=== PATIENT | female | born 1960 | race Caucasian/White ===

== ENCOUNTER 2016-05-04 06:25 | Observation (INO) | payer MEDICARE ==
[~2016-05-04] VITALS: Ht 180.3 cm; Wt 74.0 kg
[2016-05-04] VITALS (7 sets, daily range): BP systolic 88–132; BP diastolic 60–79; PULSE 69–83; RESP 11–19; O2SAT 93–99
[~2016-05-04 06:25] MED LIST: AMLO-39 PO; ASCO100089 PO; ASPI-973 PO; BUPR150T8 PO; CALC-68 PO; CLOB15CR3 TOP; CYCL10TA9 PO; DULO60CA42 PO; ETAN50PE SQ; FAMO40TA72 PO; FLAX340P PO; FOLI1TAB18 PO; FURO40TA4 PO; GABA-502 PO; HYDR200T5 PO; IBUP200C PO; KLO5T PO; LEVO75TA4 PO; MELO-259 PO; METH1VIA2 IJ; METH5TAB3 PO; MULT-666 PO; OMEG1CAP25 PO; PENT400T PO; POTA10TA12 PO; POTA8TAB3 PO; PRAZ1CAP PO; trental
--- NOTE | 2016-05-04 06:34 | ED.REPORT ---
HPI-Abd Pain F 40 and Over Date of Service May 04, 2016 ED Provider: Dr. Checo Mueller 55 year old female on methadone with a hx of multiple small bowel obstructions presents to the ED complaining of severe diffuse abdominal pain onset yesterday. She is moaning and in distress upon entering the room. Pt has inability to pas gas and denies vomiting .She describes the pain as similar to her previous bowel obstructions. Pt was admitted 4 times in September-October 2013 for small bowel obstructions. Nursing Notes Stated Complaint: ABDOMINAL PAIN Chief Complaint: Female Abdominal Pain Nursing Notes Reviewed: Yes Allergies: Coded Allergies: prednisone (Verified Allergy, Unknown, MOOD SWINGS, 05/04/16) pregabalin (Verified Allergy, Unknown, 05/04/16) Scheduled Amlodipine (Norvasc) 5 Mg Tablet 5 MG PO AM Ascorbic Acid (Vitamin C) 1,000 Mg Tab.chew 1,000 MG PO DAILY Aspirin (Aspirin) 81 Mg Tablet. 81 MG PO AM Bupropion ER (Wellbutrin SR) 150 Mg Tablet.er 150 MG PO BID Calcium Citrate/Vitamin D2 (Calcium with Vit D Tablet) 1 Each Tablet 1 EACH PO DAILY Clobetasol Propionate/Emoll (Clobetasol Emollient 0.05% Crm) 15 Gm Cream..g. 1 APPL TOP BID Duloxetine (Cymbalta) 60 Mg Capsule. 60 MG PO PM Etanercept (Enbrel) 50 Mg/1 Ml Pen.injctr 50 MG SQ q wednesday 0.98 ml weekly on Sundays Famotidine (Pepcid) 40 Mg Tablet 40 MG PO DAILY Flaxseed (Flaxseed) 340 Gm Powder 1 TSP PO DAILY Folic Acid (Folic Acid) 1 Mg Tablet 1 MG PO PM Furosemide (Furosemide) 40 Mg Tablet 40 MG PO AM Gabapentin (Gabapentin) 300 Mg Capsule 600 MG PO BID Hydroxychloroquine Sulfate (Hydroxychloroquine Sulfate) 200 Mg Tablet 400 MG PO PM Levothyroxine (Levothyroxine) 75 Mcg Tablet 75 MCG PO AM Meloxicam (Meloxicam) 7.5 Mg Tablet 1 TAB PO AM take 1-2 tabs Methadone (Methadone) 5 Mg Tablet 15 MG PO BID Methotrexate Sodium/Pf (Methotrexate 1 gm Vial) 1 Gm Vial 1 GM IJ WEEKLY Multivitamin (Once Daily) 1 Each Tablet 1 EACH PO DAILY [place]-3 Fatty Acids/Fish Oil ([place] 3 Fish Oil Softgel) 1 Each Capsule.dr 1 EACH PO DAILY 1200mg po caps Pentoxifylline (Pentoxifylline) 400 Mg Tablet.er 400 MG PO AM Potassium Chloride ER (Potassium Chloride ER) 10 Meq Tablet.er 10 MEQ PO AM TAKE WITH FOOD Potassium Chloride ER (Klor-Con 8) 8 Meq Tablet 8 MEQ PO BID Prazosin (Minipress) 1 Mg Capsule 1 MG PO BID Scheduled PRN Ibuprofen (Ibuprofen) 200 Mg Capsule 200 MG PO q6hrs PRN PRN For Pain General Time Seen by MD: 06:33 Chief Complaint Abdominal pain Hx Obtained From: Patient Arrived By: Walk-in Sudden in Onset?: Yes Onset Occurred: 1 day ago Symptom Duration: Since onset Location: : Diffuse Severity: Current: Severe Past Medical History Past Medical History Multiple Small Bowel Obstructions Rheumatoid arthritis Raynaud's Scleroderma Hypothyroid GERD Reports: Thyroid disease Past Surgical History Bowel resection for obstruction secondary to adhesions laparoscopically assisted subtotal colectomy with anastomosis between cecum and distal sigmoid colon. Smoking History Never Smoker Social History Alcohol Use: Denies alcohol use Drug Use: Denies drug use Ambulatory Status Independent Review of Systems GI: Reports: Abdominal pain (diffuse), Denies: Vomiting Complete sys rev & neg: except as marked. Physical Exam Vital Signs Vital Signs (First) Date Time Temp Pulse Resp B/P Pulse Ox O2 Delivery O2 Flow Rate FiO2 05/04/16 06:29 36.1 79 18 119/79 99 Room Air Initial VS: Reviewed Head / Eyes: Atraumatic, Normocephalic, PERRL ENT: Mucous membranes moist, Conjunctiva normal, No scleral icterus Neck: Supple, Non-tender, Full range of motion Extremities: Vascular intact, Neuro intact, No swelling, No tenderness General/Constitutional: Awake, Alert Distress / Hydration: Positive: Distress moderate Respiratory / Chest: Atraumatic, Breath sounds NL, Breath sounds = bilat, No respiratory distress, No rales, No rhonchi, No wheezing, No retractions Cardiovascular: Heart rate NL, Regular rhythm, Heart sounds NL, No gallop, No murmurs, No rubs Tenderness/Guarding/Rebound: Positive: Tender diffuse Back: Atraumatic, Inspection NL, Full range of motion Interpretation & Diagnostics Lab Results Interpretation Result Diagram: 05/04/16 0720 05/04/16 0720 Test 05/04/16 07:20 White Blood Count 16.0th/mm3 (3.8-10.1) Red Blood Count 5.35mil/mm3 (3.90-5.20) Hemoglobin 15.5g/dL (12.0-15.6) Hematocrit 48.3% (35.0-46.0) Mean Corpuscular Volume 90.3fL (81-100) Mean Corpuscular Hemoglobin 29.0pg (27.0-35.0) Mean Corpuscular Hemoglobin Concent 32.1% (32.0-37.0) Red Cell Distribution Width 14.9% (12.3-15.4) Platelet Count 258bil/L (150-400) Neutrophils (%) (Auto) 77.3% (40-74) Lymphocytes (%) (Auto) 11.3% (14-46) Monocytes (%) (Auto) 8.2% (4-12) Eosinophils (%) (Auto) 1.9% (0-5) Basophils (%) (Auto) 0.4% (0-3) Sodium Level 141mEq/L (134-144) Potassium Level 4.1mEq/L (3.5-5.2) Chloride Level 98mEq/L (97-108) Carbon Dioxide Level 26mmol/L (18-29) Blood Urea Nitrogen 24mg/dL (6-24) Creatinine 1.06mg/dL (0.57-1.00) Estimat Glomerular Filtration Rate 77mL/min (>59) Glucose Level 143mg/dL (60-99) Lactic Acid Level 2.8mmol/L (0.4-2.0) Calcium Level 10.0mg/dL (8.5-10.1) Magnesium Level 2.4mg/dL (1.6-2.6) Total Bilirubin 0.2mg/dL (0.0-1.2) Aspartate Amino Transf (AST/SGOT) 25U/L (0-50) Alanine Aminotransferase (ALT/SGPT) 21U/L (0-32) Alkaline Phosphatase 85U/L (25-150) Total Protein 8.0g/dL (6.4-8.4) Albumin 4.6g/dL (3.4-5.0) Lipase 1893U/L (13-60) X-Ray Chest Interpretation Chest Xray Interpretation: IMPRESSION: No acute process seen within the chest. Dictated by: Alon Xiao [facility] Interpreted: Charu Gallegos MD on 05/04/2016 at 9:01 Transcribed by: CORONA on 05/04/2016 at 9:01 View: Portable Interpretation / Wet Read by: Interpret - Radiologist CT Abd / Pelvis Interpretation IMPRESSION: 1. Distended loops of small bowel with a transition point in the left hemipelvis consistent with a high-grade small bowel obstruction. Small amount of associated free fluid is noted. No free air. Findings discussed with Dr. Catherine on 05/04/16 at 10:20 AM. 2. Biliary and pancreatic duct dilatation are nonspecific and may be associated with bowel obstruction. Dictated by: Edy Lilly M.D. on 05/04/2016 at 10:15 Approved by: Edy Lilly M.D. on 05/04/2016 at 10:25 Study type: Abdominal CT no contrast Interpretation / Wet Read by: Interpret - Radiologist Re-Eval/Medical Decision Med Decision/Clinical Course Bowel obstruction with associated pancreatitis. Will be admitted. I do not suspect acute infection rather think that the lactic acidosis and leukocytosis are likely related to pancreatitis. Re-Evaluation/Progress : Time of Eval: 10:30 Patient Status: Condition unchanged Re-Evaluation/Progress Note: Pt rechecked and is still in pain after 6mg dilodid. CT shows a bowel obstruction but no inflammation around pancreas. Informed pt of need for NG tube and admission. Consultation : Referral / Consult Name: Ash Velásquez DO Consulted With: Hospitalist Call Returned at: 10:32 Credit Front Office Developer: Agrees with eval, Agrees with plan, Accepts admit Note: Case discussed. Dr. Velásquez accepts admit. Counseled Regarding: Diagnosis, Lab results, Need for admission Discharge & Departure Primary Impression: Bowel obstruction Intestinal obstruction type: unspecified Qualified Code: K56.60 - Unspecified intestinal obstruction Disposition: ADMITTED TO HOSPITAL Discharge Condition All VS Reviewed: Yes Condition: Stable Referrals: Andria Garcia MD (PCP) Scribe Attestation Portion of this note were transcribed by Ivana Bello. I, Dr. Mueller, personally performed the history, physical exam, and medical decision-making: I reviewed and confirmed the accuracy for the information in the transcribed note. Signed by: margareth King, 05/04/16 1200 copies to: Andria Garcia MD, Timothy S DO May 04, 2016 06:34 IVANA BELLO May 04, 2016 06:47
[2016-05-04] MEDS ORDERED: 0.9% Sodium Chloride 1,000 ML IV ONE (06:41)
[2016-05-04] MEDS ORDERED: Ondansetron 2 mg/mL 2 mL Inj IVPUSH PRN ×3 (06:45→18:45)
[2016-05-04] MEDS: HYDROmorphone 0.5 mg/0.5 mL iSecure Syringe IVPUSH PRN ×4 (07:26→08:18)
[2016-05-04 07:29] LABS: BASOPHILS % (AUTO) 0.4 % (0-3); EOSINOPHILS % (AUTO) 1.9 % (0-5); MONOCYTES % (AUTO) 8.2 % (4-12); Mean Corpuscular Volume 90.3 fL (81-100); NEUTROPHILS % (AUTO) 77.3 % (40-74); Platelet Count 258 bil/L (150-400)
[2016-05-04 08:08] LABS: Magnesium 2.4 mg/dL (1.6-2.6)
[2016-05-04] MEDS ORDERED: HYDROmorphone 1 mg/mL Inj IVPUSH PRN ×2 (08:10→09:15)
--- NOTE | 2016-05-04 09:02 | DRSVH ---
PROCEDURE: X-RAY CHEST ONE VIEW, PORTABLE ([id number]) INDICATIONS: abd pain, sepsis TECHNIQUE: One view of the chest was acquired. COMPARISON: Located Within [facility], CR, XR CHEST 1VW (PORTABLE), 05/11/2015, 14:08. FINDINGS: Surgical changes and devices: None. Lungs and pleura: No pleural effusions or pneumothorax. Lungs are clear. Mediastinum: Mediastinal contours appear normal. Heart size is normal. Bones and chest wall: No suspicious bony lesions. Overlying soft tissues appear unremarkable. IMPRESSION: No acute process seen within the chest. Dictated by: Alon Xiao [facility] Interpreted: Charu Gallegos MD on 05/04/2016 at 9:01 Transcribed by: CORONA on 05/04/2016 at 9:01 Approved by: Charu Gallegos M.D. on 05/04/2016 at 16:29
--- NOTE | 2016-05-04 10:27 | DRSVH ---
PROCEDURE: CT ABDOMEN AND PELVIS WITH CONTRAST ([id number]) INDICATIONS: Abdominal pain, recent fundoplication. TECHNIQUE: After the administration of oral and intravenous contrast, 5 mm thick sections acquired from the diap hragms to the symphysis. 5 mm thick coronal and sagittal reformats were performed. For radiation do se reduction, the following was used: automated exposure control, adjustment of mA and/or kV accordi ng to patient size. COMPARISON: [facility], CT, CT ABD PELVIS W CON, 05/11/2015, 17:29. FINDINGS: Image quality: There is streak artifact associated with surgical clips in the left hemipelvis. ABDOMEN: Lung bases: Lung bases are clear. Heart size is normal. Solid organs: Liver and spleen are normal in size and enhancement. Gallbladder is distended without calcified gallstones or wall thickening. There is increased biliary and pancreatic duct dilatation, with the common bile duct measuring up to 8 mm and the hepatic duct measuring up to 6 mm. Noncalcif ied common duct stones identified. No adrenal nodules. Kidneys are normal in size and enhancement, without hydronephrosis. Peritoneum and bowel: There are postsurgical changes at the gastroesophageal junction consistent wit h history of fundoplication. Mild associated wall thickening may reflect residual post surgical tami a. There is marked distention of the stomach and small bowel loops which measure up to 5.1 cm. Mult iple associated air-fluid levels are demonstrated. There is a transition point in the left hemipelvi s on series 2 image 67 and coronal image 25 of series 4 with associated small bowel feces sign. More distal loops of small bowel are nondistended. There are postsurgical changes compatible with partia l colectomy. A small amount of free fluid is demonstrated in the abdomen and pelvis. No free air. Nodes and vessels: No retroperitoneal or mesenteric adenopathy. Aorta and inferior vena cava are no rmal in caliber. Miscellaneous: No ventral hernias. PELVIS: Genitourinary: Bladder wall thickness is normal. Miscellaneous: No inguinal hernias or adenopathy. Bones: No suspicious bony lesions. No vertebral body compression fractures. IMPRESSION: 1. Distended loops of small bowel with a transition point in the left hemipelvis consistent with a h igh-grade small bowel obstruction. Small amount of associated free fluid is noted. No free air. Fi ndings discussed with Dr. Catherine on 05/04/16 at 10:20 AM. 2. Biliary and pancreatic duct dilatation are nonspecific and may be associated with bowel obstructi on. Dictated by: Edy Lilly M.D. on 05/04/2016 at 10:15 Approved by: Edy Lilly M.D. on 05/04/2016 at 10:25
[2016-05-04] MEDS ORDERED: MetoCLOpramide 5 mg/mL 2 mL Inj IVPUSH ONE (10:45)
[2016-05-04] MEDS ORDERED: 0.9% Sodium Chloride 1,000 ML IV SCH (11:42)
[2016-05-04] MEDS ORDERED: Alum-Mag Hydrox-Simeth 30 mL Suspension PO PRN ×2 (11:45→18:45)
--- NOTE | 2016-05-04 12:40 | NUR ---
ADMIT TO [facility] Patient arrived to room 1017 [facility]. Was able to stand and transfer to hospital bed without any assistance. Gait steady. Left NGT in place. Hooked up to med cont. suction with brown/green sediment output. Rates abdominal pain 4/10 which is tolerable for her. IV fluids running through left AC. Patient advised of NPO status. Oriented to room. Continue to monitor.
--- NOTE | 2016-05-04 15:32 | PCM.CONSUR ---
Subjective Date of Service: May 04, 2016 History of Present Illness Kallie Veloz is a 55 year old woman with a PMH of scleroderma, Toupe fundoplication in 2008 subsequently revised 02/2016, Multiple SBOs most recently in 10/2015 requiring 3 prior adhesion lysis procedures in 2013 who presents with a 1 day history of nausea and abdominal which she recognized as consistent with her prior SBOs. CT imaging in the ED revealed high grade SBO with a transition point in the left hemipelvis concurrent with biliary and pancreatic duct dilatation with associated elevated Lipase. At the time of evaluation the patient reports that the NG tube decompression initiated in the ED has greatly improved her abdominal distension and discomfort, and she states that in the past with her prior SBOs she has removed the NG tube the same day it was placed following improvement of her symptoms with subsequent uncomplicated resolution. . Allergy Allergies: Coded Allergies: prednisone (Verified Allergy, Unknown, MOOD SWINGS, 05/04/16) pregabalin (Verified Allergy, Unknown, 05/04/16) Medications Hypertension Medication: Yes (Home amlodipine) Home Meds Incl Beta Blockers: No Amlodipine (Norvasc) 5 Mg Tablet 5 MG PO AM (Reported) Last Taken: Unknown Dose on 05/03/16 0800 Ascorbic Acid (Vitamin C) 1,000 Mg Tab.chew 1,000 MG PO DAILY (Reported) Last Taken: Unknown Dose on 05/03/16 0800 Aspirin (Aspirin) 81 Mg Tablet.dr 81 MG PO AM (Reported) Last Taken: Unknown Dose on 05/03/16 0800 Bupropion ER (Wellbutrin SR) 150 Mg Tablet.er 150 MG PO BID (Reported) Last Taken: Unknown Dose on 05/03/16 0800 Calcium Citrate/Vitamin D2 ( Calcium with Vit D Tablet) 1 Each Tablet 1 EACH PO DAILY (Reported) Last Taken: Unknown Dose on 05/03/16 0800 Clobetasol Propionate/Emoll ( Clobetasol Emollient 0.05% Crm) 15 Gm Cream..g. 1 APPL TOP BID (Reported) Last Taken: Unknown Dose on 05/03/16 0800 Duloxetine (Cymbalta) 60 Mg Capsule.dr 60 MG PO PM (Reported) Last Taken: Unknown Dose on 05/03/16 0800 Etanercept (Enbrel) 50 Mg/1 Ml Pen.injctr 50 MG SQ q wednesday (Reported) 0.98 ml weekly on Sundays Last Taken: Unknown Dose on 04/26/16 08 Famotidine (Pepcid) 40 Mg Tablet 40 MG PO DAILY Prescribed by: CHACHA LOPEZ DO Last Taken: Unknown Dose on 05/03/16799 Flaxseed (Flaxseed) 340 Gm Powder 1 TSP PO DAILY (Reported) Last Taken: Unknown Dose on 05/03/16799 Folic Acid (Folic Acid) 1 Mg Tablet 1 MG PO PM (Reported) Last Taken: Unknown Dose on 05/03/16799 Furosemide (Furosemide) 40 Mg Tablet 40 MG PO AM (Reported) Last Taken: Unknown Dose on 05/03/16799 Gabapentin (Gabapentin) 300 Mg Capsule 600 MG PO BID (Reported) Last Taken: Unknown Dose on 05/03/161999 Hydroxychloroquine Sulfate ( Hydroxychloroquine Sulfate) 200 Mg Tablet 400 MG PO PM (Reported) Last Taken: Unknown Dose on 05/03/16799 Ibuprofen (Ibuprofen) 200 Mg Capsule 200 MG PO q6hrs PRN PRN For Pain (Reported) Last Taken: Unknown Dose on 05/03/16799 Levothyroxine (Levothyroxine) 75 Mcg Tablet 75 MCG PO AM (Reported) Last Taken: Unknown Dose on 05/03/16799 Meloxicam (Meloxicam) 7.5 Mg Tablet 1 TAB PO AM (Reported) take 1-2 tabs Last Taken: Unknown Dose on 05/03/16799 Methadone (Methadone) 5 Mg Tablet 15 MG PO BID (Reported) Last Taken: Unknown Dose on 05/03/161999 Methotrexate Sodium/Pf ( Methotrexate 1 gm Vial) 1 Gm Vial 1 GM IJ WEEKLY (Reported) Last Taken: Unknown Dose on 05/03/16799 Multivitamin (Once Daily) 1 Each Tablet 1 EACH PO DAILY (Reported) Last Taken: Unknown Dose on 05/03/16799 [place]-3 Fatty Acids/Fish Oil ( [place] 3 Fish Oil Softgel) 1 Each Capsule.dr 1 EACH PO DAILY (Reported) 1200mg po caps Last Taken: Unknown Dose on 05/03/16 08 Pentoxifylline (Pentoxifylline) 400 Mg Tablet.er 400 MG PO AM (Reported) Last Taken: Unknown Dose on 05/03/16799 Potassium Chloride ER (Potassium Chloride ER) 10 Meq Tablet.er 10 MEQ PO AM (Reported) TAKE WITH FOOD Last Taken: Unknown Dose on 05/03/16 0800 Potassium Chloride ER (Klor-Con 8) 8 Meq Tablet 8 MEQ PO BID (Reported) Last Taken: Unknown Dose on 05/03/161999 Prazosin (Minipress) 1 Mg Capsule 1 MG PO BID (Reported) Last Taken: Unknown Dose on 05/03/161999 Discontinued Medications ([trental]) (Reported) Clonazepam (Clonazepam) 0.5 Mg Tab 0.5 MG PO PM (Reported) Last Taken: Unknown Dose on Unknown Date & Time Cyclobenzaprine ( Cyclobenzaprine) 10 Mg Tablet 10 MG PO HS (Reported) Last Taken: Unknown Dose on Unknown Date & Time Past Surgical History Surgeries: Yes (wrist, toupet fundoplication, sinus, toes, SUBTOTAL COLECTOMY, lysis of adhesions x3 in 2013) Patient/Family Past Surgical: Positive for:: Accept Blood Products?, Denies:: Anesthesia Reactions, Blood Transfuse Reaction, Blood Transfusions, Malignant Hyperthermia Social History Hx Alcohol Use: No Hx Substance Use: No Hx Tobacco Use: No PMH HEENT History History of ENT Problems?: Yes HEENT History: Positive for:: Sinus Problem (hx of sinus surg/ resolved AMBERLY ) Denies:: Abnormal Airway Cataracts Difficult Intubation Dysphagia Hearing Problem Cardiovascular History History of Heart Problems?: Yes Cardiovascular History: Positive for:: Chest Pain (pulmonary ) Denies:: Cardiac Surgery Congestive Heart Failure Edema Heart Murmur Hypertension Irregular Heartbeat Pacemaker Thrombophlebitis Respiratory History of Respiratory Problem: Yes Respiratory History: Positive for:: Use of C-PAP Machine (amberly pos) Denies:: Asthma COPD Chest Surgery Dyspnea Emphysema Hemoptysis Oxygen Administration Pneumonia Tuberculosis Neurological History Hx Neurologic Problems?: Yes Neurological History: Denies:: Alzheimer's Disease CVA Dementia Dizziness Headaches Multiple Sclerosis Parkinson's Disease Seizures Gastrointestinal History HX of GI Problems?: Yes Gastrointestinal History: Positive for:: Gastroesphageal Reflux Heartburn Denies:: Cirrhosis Diverticulitis Gastrointestinal Bleeding Hepatitis Hiatal Hernia Rectal Bleeding Other GI Pertinent History: sectio of colon removed 2013 Genitourinary History Hx of Gu Problems?: No Genitourinary History: Denies: HX of Hemodialysis Kidney Stones Urinary Tract Infection Female/Male History Reproductive History Female: Denies: Currently ? Endometriosis Pelvic Inflammatory DX Problems with Breasts? Skin History Skin History: Positive for:: History Skin Disorders? (scleraderma) Musculoskeletal History Hx Musculoskeletal Problems?: Yes Musculoskeletal History: Positive for:: Musculoskeletal Trauma (wrist and toe surg) Denies:: Back Injury Joint Replacement Psycho Social History Hx of Psycho/Social Problems?: Yes Psycho Social History: Positive for:: Hx Depression Denies:: Anxiety Bipolar Disorder Suicide Attempt Other History Hx Any Other Health Problems?: Yes Other History: Positive for:: Hospitalization Thyroid Disease (hypo) Denies:: Cancer Endocrine Disease Diabetes: No Social History Hx Alcohol Use: NoHx Substance Use: NoHx Tobacco Use: No Smoking Status: Never Smoker Objective Exam Vital Signs & I/O Vital Sign- Last 8 Hours Date Time Temp Pulse Resp B/P Pulse Ox O2 Delivery O2 Flow Rate FiO2 05/04/16 12:08 36.9 69 18 112/68 97 Room Air 05/04/16 11:11 81 11 99/60 96 Room Air 05/04/16 11:00 83 17 132/64 97 Room Air 05/04/16 10:30 77 17 88/64 93 Room Air 05/04/16 10:00 75 19 114/74 97 Room Air 05/04/16 09:30 72 14 114/64 96 Room Air 05/04/16 06:29 36.1 79 18 119/79 99 Room Air Lab & Micro Results Laboratory Tests Test 05/04/16 07:20 White Blood Count 16.0th/mm3 (3.8-10.1) Red Blood Count 5.35mil/mm3 (3.90-5.20) Hemoglobin 15.5g/dL (12.0-15.6) Hematocrit 48.3% (35.0-46.0) Mean Corpuscular Volume 90.3fL (81-100) Mean Corpuscular Hemoglobin 29.0pg (27.0-35.0) Mean Corpuscular Hemoglobin Concent 32.1% (32.0-37.0) Red Cell Distribution Width 14.9% (12.3-15.4) Platelet Count 258bil/L (150-400) Neutrophils (%) (Auto) 77.3% (40-74) Lymphocytes (%) (Auto) 11.3% (14-46) Monocytes (%) (Auto) 8.2% (4-12) Eosinophils (%) (Auto) 1.9% (0-5) Basophils (%) (Auto) 0.4% (0-3) Sodium Level 141mEq/L (134-144) Potassium Level 4.1mEq/L (3.5-5.2) Chloride Level 98mEq/L (97-108) Carbon Dioxide Level 26mmol/L (18-29) Blood Urea Nitrogen 24mg/dL (6-24) Creatinine 1.06mg/dL (0.57-1.00) Estimat Glomerular Filtration Rate 77mL/min (>59) Glucose Level 143mg/dL (60-99) Lactic Acid Level 2.8mmol/L (0.4-2.0) Calcium Level 10.0mg/dL (8.5-10.1) Magnesium Level 2.4mg/dL (1.6-2.6) Total Bilirubin 0.2mg/dL (0.0-1.2) Aspartate Amino Transf (AST/SGOT) 25U/L (0-50) Alanine Aminotransferase (ALT/SGPT) 21U/L (0-32) Alkaline Phosphatase 85U/L (25-150) Total Protein 8.0g/dL (6.4-8.4) Albumin 4.6g/dL (3.4-5.0) Lipase 1893U/L (13-60) Result Diagram: 05/04/1671905/04/16719 Review of Systems: Constitutional: Negative, except as otherwise mentioned in the history above. Ophthalmologic: Negative, except as otherwise mentioned in the history above. Cardiovascular: Negative, except as otherwise mentioned in the history above. Respiratory: Negative, except as otherwise mentioned in the history above. Gastrointestinal: Negative, except as otherwise mentioned in the history above. Genitourinary: Negative, except as otherwise mentioned in the history above. Musculoskeletal: Negative, except as otherwise mentioned in the history above. Neurological: Negative, except as otherwise mentioned in the history above. Psychiatric: Negative, except as otherwise mentioned in the history above. Hematologic/Lymphatic: Negative, except as otherwise mentioned in the history above. Allergic/Immunologic: Negative, except as otherwise mentioned in the history above. H&P Surgical Exam Exam General: Alert, Oriented X3, Cooperative, Mild Distress HEENT: Within normal limits & unremarkable, PERRLA, EOMI, Mucous membranes moist and pink Neck: Within normal limits & unremarkable Respiratory: Clear to Auscultation Cardiac: Exam Unremarkable, Regular Rate/Rhythm, No Murmurs/Rubs/Gallops Abdomen: No masses, Other (diminished bowel sounds, mild diffuse tenderness to palpation) Breasts: Not Indicated Pelvic: Not Indicated Assessment & Plan Assessment Patient is a 55 year old woman with a PMH of scleroderma, Hemicolectomy with residual sigmoid and rectum, multiple SBOs most recently in 10/28 requiring lysis of adhesion x3 in 2013, and Toupe fundoplication originally in 2008 at [facility] with subsequent revision in 02/27 at who presents with another high grade SBO with transitional zone in the left Hemipelvis. She is quite familiar with the expected course of this condition and states that she already feels great improvement form NG suctioning, she states that in the past with prior SBOs she has had the NG tube removed early in the course of recovery essentially once her distension and nausea subsided and she would like to pursue this strategy again. We see no contraindication to acquiescing to her wishes as she is intimately familiar with her usual course of SBO and recognizes and accepts the risk for re-insertion of the NG tube should her SBO fail to resolve. Thus we will plan to likely pull the NG tube this evening and continue to observe Mrs. Veloz and assess for passage of stool or flatus. At this point we will not initiate a gastrographin challenge test and this has not been required in the past for resolution of her SBOs. Pain Evaluation: Adequate Pain Control VTE Mechanical Devices: Intermittant Pneumatic CD Plan: -Plan to pull NG tube this evening if symptoms have improved significantly -Continue NPO -Observe for passage of stool or flatus -Follow up imaging as indicated -Pain and nausea control with Dilaudid and Zofran PRN -We will continue to follow this patient and will be available should her condition change. Resuscitation Status: CPR: Attempt Resuscitation Attending Statement: I personally interviewed and examined the pt, and I agree with Dr. Velásquez's assessment and plan. Ash Velásquez DO May 04, 2016 14:22 Hudson Lee MD May 07, 2016 09:19
--- NOTE | 2016-05-04 17:31 | NUR ---
GI Had received orders to remove NGT this evening, but patient had already done so on her own when this nurse entered the room. The NGT suction was still on. Has had 2 small BM's since NGT had been placed this morning. Patient reports passing flatus. Notified general surgery and he gave orders to advance diet as tolerated. Gave patient clear liquids. Tolerating well at this point.
[2016-05-04] MEDS ORDERED: Polyethylene Glycol (PEG) 17 Gm Powder PO PRN (18:45)
--- NOTE | 2016-05-04 18:52 | PCM.HPMED ---
Subjective Date of Service May 04, 2016 Primary Provider: Admitting Physician: Anil Wright Primary Care Physician: Andria Garcia MD Attending Physician: Anil Wright Chief Complaint: abdominal pain History of Present Illness: 55 year old female with past history notable for scleroderma, Fundoplication in 2008 subsequently revised 02/2016, Multiple SBOs most recently in 10/2015 requiring 3 prior adhesion lysis procedures presents with acute onset of abdominal pain and nausea since last night. This was also associated with low back pain that has resolved since presentation to the ED. In ED NG tube was placed and surgery consulted. Allergies Coded Allergies: prednisone (Verified Allergy, Unknown, MOOD SWINGS, 05/04/16) pregabalin (Verified Allergy, Unknown, 05/04/16) Home Medications Hydroxychloroquine Sulfate 200 Mg Tablet 400 Mg PO PM 30 Days Ref 0 Methotrexate Sodium/Pf 1 Gm Vial (Methotrexate 1 gm Vial) 1 Gm IJ WEEKLY Pentoxifylline 400 Mg Tablet.Er 400 Mg PO AM 30 Days Amlodipine 5 Mg Tablet (Norvasc) 5 Mg PO AM 30 Days Ref 0 [place]-3 Fatty Acids/Fish Oil 1 Each Capsule.Dr ([place] 3 Fish Oil Softgel) 1 Each PO DAILY 1200mg po caps Prazosin 1 Mg Capsule (Minipress) 1 Mg PO BID Aspirin 81 Mg Tablet.Dr 81 Mg PO AM #1 BOTTLE Ref 0 Bupropion ER 150 Mg Tablet.Er (Wellbutrin SR) 150 Mg PO BID Ref 0 Duloxetine 60 Mg Capsule.Dr (Cymbalta) 60 Mg PO PM Ref 0 Gabapentin 300 Mg Capsule 600 Mg PO BID 30 Days Ref 0 Ibuprofen 200 Mg Capsule 200 Mg PO q6hrs PRN Ref 0 PRN For Pain PRN For Pain Meloxicam 7.5 Mg Tablet 1 Tab PO AM 30 Days Ref 0 take 1-2 tabs Methadone 5 Mg Tablet 15 Mg PO BID For Pain For Pain Calcium Citrate/Vitamin D2 1 Each Tablet (Calcium with Vit D Tablet) 1 Each PO DAILY Furosemide 40 Mg Tablet 40 Mg PO AM 30 Days Potassium Chloride ER 10 Meq Tablet.Er 10 Meq PO AM 30 Days Ref 0 Potassium Chloride ER 8 Meq Tablet (Klor-Con 8) 8 Meq PO BID Ref 0 Famotidine 40 Mg Tablet (Pepcid) 40 Mg PO DAILY #30 TABLET Levothyroxine 75 Mcg Tablet 75 Mcg PO AM 30 Days Ref 0 Clobetasol Propionate/Emoll 15 Gm Cream..G. (Clobetasol Emollient 0.05% Crm) 1 Appl TOP BID #1 TUBE Ascorbic Acid 1,000 Mg Tab.Chew (Vitamin C) 1,000 Mg PO DAILY Ref 0 Folic Acid 1 Mg Tablet 1 Mg PO PM 30 Days Multivitamin 1 Each Tablet (Once Daily) 1 Each PO DAILY Etanercept 50 Mg/1 Ml Pen.Injctr (Enbrel) 50 Mg SQ q wednesday 0.98 ml weekly on Sundays Flaxseed 340 Gm Powder 1 Tsp PO DAILY Exam Vital Signs & I/O Vital Sign- Last 8 Hours Date Time Temp Pulse Resp B/P Pulse Ox O2 Delivery O2 Flow Rate FiO2 05/04/16 12:08 36.9 69 18 112/68 97 Room Air 05/04/16 11:11 81 11 99/60 96 Room Air 05/04/16 11:00 83 17 132/64 97 Room Air Lab & Micro Results Laboratory Tests Test 05/04/16 07:20 White Blood Count 16.0th/mm3 (3.8-10.1) Red Blood Count 5.35mil/mm3 (3.90-5.20) Hemoglobin 15.5g/dL (12.0-15.6) Hematocrit 48.3% (35.0-46.0) Mean Corpuscular Volume 90.3fL (81-100) Mean Corpuscular Hemoglobin 29.0pg (27.0-35.0) Mean Corpuscular Hemoglobin Concent 32.1% (32.0-37.0) Red Cell Distribution Width 14.9% (12.3-15.4) Platelet Count 258bil/L (150-400) Neutrophils (%) (Auto) 77.3% (40-74) Lymphocytes (%) (Auto) 11.3% (14-46) Monocytes (%) (Auto) 8.2% (4-12) Eosinophils (%) (Auto) 1.9% (0-5) Basophils (%) (Auto) 0.4% (0-3) Sodium Level 141mEq/L (134-144) Potassium Level 4.1mEq/L (3.5-5.2) Chloride Level 98mEq/L (97-108) Carbon Dioxide Level 26mmol/L (18-29) Blood Urea Nitrogen 24mg/dL (6-24) Creatinine 1.06mg/dL (0.57-1.00) Estimat Glomerular Filtration Rate 77mL/min (>59) Glucose Level 143mg/dL (60-99) Lactic Acid Level 2.8mmol/L (0.4-2.0) Calcium Level 10.0mg/dL (8.5-10.1) Magnesium Level 2.4mg/dL (1.6-2.6) Total Bilirubin 0.2mg/dL (0.0-1.2) Aspartate Amino Transf (AST/SGOT) 25U/L (0-50) Alanine Aminotransferase (ALT/SGPT) 21U/L (0-32) Alkaline Phosphatase 85U/L (25-150) Total Protein 8.0g/dL (6.4-8.4) Albumin 4.6g/dL (3.4-5.0) Lipase 1893U/L (13-60) Result Diagram: 05/04/1671905/04/16719 Review of Systems: Constitutional: Negative, except as otherwise mentioned in the history above. Ophthalmologic: Negative, except as otherwise mentioned in the history above. Cardiovascular: Negative, except as otherwise mentioned in the history above. Respiratory: Negative, except as otherwise mentioned in the history above. Gastrointestinal: Negative, except as otherwise mentioned in the history above. Genitourinary: Negative, except as otherwise mentioned in the history above. Musculoskeletal: Negative, except as otherwise mentioned in the history above. Neurological: Negative, except as otherwise mentioned in the history above. Psychiatric: Negative, except as otherwise mentioned in the history above. Hematologic/Lymphatic: Negative, except as otherwise mentioned in the history above. Allergic/Immunologic: Negative, except as otherwise mentioned in the history above. 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 Surgical History Laparoscopic Toupet fundoplication in approximately 2008, subtotal colectomy for colonic inertia in March 2013 by Deshawn Oliver, lysis of adhesions by Bryant Soliman in April 2013, lysis of adhesions by Ash Pandya in September 2013, and lysis of adhesions by Ash Pandya in October 2013. Social History Hx Alcohol Use: No Hx Substance Use: No Hx Tobacco Use: No Smoking Status: Never Smoker Exam Vital Signs Vital Sign - Last Date Time Temp Pulse Resp B/P Pulse Ox O2 Delivery O2 Flow Rate FiO2 05/04/16 12:08 36.9 69 18 112/68 97 Room Air General: Alert, Oriented X3, Cooperative, No Acute Distress Head: Normal Eyes: PERRLA, EOMI, Scleral Anicteric Nose: Mucous Membr Moist/[place] Mouth: Mucous Membr Moist/[place], Other (NG tube in place ) Neck: Supple Chest & Lungs: Chest Wall Normal, Clear to auscultation & percussion Cardiovascular: Regular Rate/Rhythm Abdomen: Non-tender, Non-distended, Normoactive bowel tones, Soft Extremities: No cyanosis/clubbing/edma bilat Skin: Other (no rash/ulcer) Neurological: Grossly Neurologically Intact, Normal Speech Lymphatic: Other Lymph Nodes (no lymphadenopathy) Lab and Diagnostics Result Diagram: 05/04/16 0720 05/04/16 0720 X-Rays, CTs and MRIs Date of Service: 05/04/16 0836 PROCEDURE: CT ABDOMEN AND PELVIS WITH CONTRAST ([id number]) IMPRESSION: 1. Distended loops of small bowel with a transition point in the left hemipelvis consistent with a high-grade small bowel obstruction. Small amount of associated free fluid is noted. No free air. Findings discussed with Dr. Catherine on 05/04/16 at 10:20 AM. 2. Biliary and pancreatic duct dilatation are nonspecific and may be associated with bowel obstruction. Dictated by: Edy Lilly M.D. on 05/04/2016 at 10:15 Approved by: Edy Lilly M.D. on 05/04/2016 at 10:25 Date of Service: 05/04/16 0836 PROCEDURE: X-RAY CHEST ONE VIEW, PORTABLE ([id number]) IMPRESSION: No acute process seen within the chest. Dictated by: Alon MONDRAGON Interpreted: Charu Gallegos MD on 05/04/2016 at 9:01 Transcribed by: CORONA on 05/04/2016 at 9:01 Approved by: Charu Gallegos M.D. on 05/04/2016 at 16:29 Assessment & Plan 55 year old female with past history notable for scleroderma, Fundoplication in 2008 subsequently revised 02/2016, Multiple SBOs most recently in 10/2015 requiring 3 prior adhesion lysis procedures presents with acute onset of abdominal pain and nausea since last night. # Acute small bowel obstruction. present on admission. - at time of this dictation seems to have clinically resolved with report of patient having had BM and removed her own NG tube and tolerating clear liq diet - appreciate surgery consult. will f/u recs - advance diet as tolerated and if no discomfort will likely d/c home # history of scleroderma. stable - c/w home meds Pain Evaluation: Adequate Pain Control VTE Mechanical Devices: Intermittant Pneumatic CD Resuscitation Status: CPR: Attempt Resuscitation (discussed and verified with patient) Time spent 60 min Anil Wright May 04, 2016 18:52
--- NOTE | 2016-05-04 19:02 | PCM.DIMED ---
Discharge Instructions Date of Service May 04, 2016 Dates of Hospitalization May 04, 2016 at 11:08 Discharge Diagnosis Discharge Diagnosis # Acute small bowel obstruction. present on admission. Clinically resolved. # History of scleroderma. stable Medication Instructions Resume home medications as before Diet Heart Healthy Activity No restrictions Call your provider Fever or Chills, Shortness of breath, Bleeding, Chest pain, Vomitting, Excessive diarrhea Patient Instructions Seek immediate medical attention if any new or worsening signs or symptoms occur. Follow-up plan 1. Followup with primary care provider in 1-2 weeks Follow-up Provider: Andria Garcia MD, Masoud May 04, 2016 19:02
--- NOTE | 2016-05-04 19:09 | PCM.DC.MED ---
Discharge Summary Date of Service May 04, 2016 Dates of Hospitalization Date of Hospital Admission May 04, 2016 at 11:08 Date of Discharge: May 04, 2016 Providers: Admitting Physician: Anil Wright Primary Care Physician: Andria Garcia MD Attending Physician: Anil Wright Diagnosis at Time of Discharge Diagnosis at Time of Discharge # Acute small bowel obstruction. present on admission. Clinically resolved. # History of scleroderma. stable Consultations 1. Surgery Procedures XRay, CTs & MRIs Date of Service: 05/04/16 0836 PROCEDURE: CT ABDOMEN AND PELVIS WITH CONTRAST ([id number]) IMPRESSION: 1. Distended loops of small bowel with a transition point in the left hemipelvis consistent with a high-grade small bowel obstruction. Small amount of associated free fluid is noted. No free air. Findings discussed with Dr. Catherine on 05/04/16 at 10:20 AM. 2. Biliary and pancreatic duct dilatation are nonspecific and may be associated with bowel obstruction. Dictated by: Edy Lilly M.D. on 05/04/2016 at 10:15 Approved by: Edy Lilly M.D. on 05/04/2016 at 10:25 Date of Service: 05/04/16 0836 PROCEDURE: X-RAY CHEST ONE VIEW, PORTABLE ([id number]) IMPRESSION: No acute process seen within the chest. Dictated by: Alon Xiao [facility] Interpreted: Charu Gallegos MD on 05/04/2016 at 9:01 Transcribed by: CORONA on 05/04/2016 at 9:01 Approved by: Charu Gallegos M.D. on 05/04/2016 at 16:29 Brief History 55 year old female with past history notable for scleroderma, Fundoplication in 2008 subsequently revised 02/2016, Multiple SBOs most recently in 10/2015 requiring 3 prior adhesion lysis procedures presents with acute onset of abdominal pain and nausea since last night. This was also associated with low back pain that has resolved since presentation to the ED. In ED NG tube was placed and surgery consulted. Hospital Course # Acute small bowel obstruction. present on admission. - at time of this dictation seems to have clinically resolved with report of patient having had BM and removed her own NG tube and tolerating clear liq diet - appreciate surgery consult. will f/u recs - tolerating advance diet # history of scleroderma. stable - c/w home meds Exam Vital Signs (Last) Date Time Temp Pulse Resp B/P Pulse Ox O2 Delivery O2 Flow Rate FiO2 05/04/16 12:08 36.9 69 18 112/68 97 Room Air Test 05/04/16 07:20 White Blood Count 16.0th/mm3 (3.8-10.1) Red Blood Count 5.35mil/mm3 (3.90-5.20) Hemoglobin 15.5g/dL (12.0-15.6) Hematocrit 48.3% (35.0-46.0) Mean Corpuscular Volume 90.3fL (81-100) Mean Corpuscular Hemoglobin 29.0pg (27.0-35.0) Mean Corpuscular Hemoglobin Concent 32.1% (32.0-37.0) Red Cell Distribution Width 14.9% (12.3-15.4) Platelet Count 258bil/L (150-400) Neutrophils (%) (Auto) 77.3% (40-74) Lymphocytes (%) (Auto) 11.3% (14-46) Monocytes (%) (Auto) 8.2% (4-12) Eosinophils (%) (Auto) 1.9% (0-5) Basophils (%) (Auto) 0.4% (0-3) Sodium Level 141mEq/L (134-144) Potassium Level 4.1mEq/L (3.5-5.2) Chloride Level 98mEq/L (97-108) Carbon Dioxide Level 26mmol/L (18-29) Blood Urea Nitrogen 24mg/dL (6-24) Creatinine 1.06mg/dL (0.57-1.00) Estimat Glomerular Filtration Rate 77mL/min (>59) Glucose Level 143mg/dL (60-99) Lactic Acid Level 2.8mmol/L (0.4-2.0) Calcium Level 10.0mg/dL (8.5-10.1) Magnesium Level 2.4mg/dL (1.6-2.6) Total Bilirubin 0.2mg/dL (0.0-1.2) Aspartate Amino Transf (AST/SGOT) 25U/L (0-50) Alanine Aminotransferase (ALT/SGPT) 21U/L (0-32) Alkaline Phosphatase 85U/L (25-150) Total Protein 8.0g/dL (6.4-8.4) Albumin 4.6g/dL (3.4-5.0) Lipase 1893U/L (13-60) Discharge Medications Discharge Medications Amlodipine (Norvasc) 5 Mg Tablet 5 MG PO AM (Reported) Ascorbic Acid (Vitamin C) 1,000 Mg Tab.chew 1,000 MG PO DAILY (Reported) Aspirin (Aspirin) 81 Mg Tablet.dr 81 MG PO AM (Reported) Bupropion ER (Wellbutrin SR) 150 Mg Tablet.er 150 MG PO BID (Reported) Calcium Citrate/Vitamin D2 (Calcium with Vit D Tablet) 1 Each Tablet 1 EACH PO DAILY (Reported) Clobetasol Propionate/Emoll (Clobetasol Emollient 0.05% Crm) 15 Gm Cream..g. 1 APPL TOP BID (Reported) Duloxetine (Cymbalta) 60 Mg Capsule.dr 60 MG PO PM (Reported) Etanercept (Enbrel) 50 Mg/1 Ml Pen.injctr 50 MG SQ q wednesday (Reported) 0.98 ml weekly on Sundays Famotidine (Pepcid) 40 Mg Tablet 40 MG PO DAILY Prescribed by: CHACHA LOPEZ DO Flaxseed (Flaxseed) 340 Gm Powder 1 TSP PO DAILY (Reported) Folic Acid (Folic Acid) 1 Mg Tablet 1 MG PO PM (Reported) Furosemide (Furosemide) 40 Mg Tablet 40 MG PO AM (Reported) Gabapentin (Gabapentin) 300 Mg Capsule 600 MG PO BID (Reported) Hydroxychloroquine Sulfate (Hydroxychloroquine Sulfate) 200 Mg Tablet 400 MG PO PM (Reported) Levothyroxine (Levothyroxine) 75 Mcg Tablet 75 MCG PO AM (Reported) Meloxicam (Meloxicam) 7.5 Mg Tablet 1 TAB PO AM (Reported) take 1-2 tabs Methadone (Methadone) 5 Mg Tablet 15 MG PO BID (Reported) Methotrexate Sodium/Pf (Methotrexate 1 gm Vial) 1 Gm Vial 1 GM IJ WEEKLY ( Reported) Multivitamin (Once Daily) 1 Each Tablet 1 EACH PO DAILY (Reported) [place]-3 Fatty Acids/Fish Oil ([place] 3 Fish Oil Softgel) 1 Each Capsule.dr 1 EACH PO DAILY (Reported) 1200mg po caps Pentoxifylline (Pentoxifylline) 400 Mg Tablet.er 400 MG PO AM (Reported) Potassium Chloride ER (Potassium Chloride ER) 10 Meq Tablet.er 10 MEQ PO AM ( Reported) TAKE WITH FOOD Potassium Chloride ER (Klor-Con 8) 8 Meq Tablet 8 MEQ PO BID (Reported) Prazosin (Minipress) 1 Mg Capsule 1 MG PO BID (Reported) As needed Ibuprofen (Ibuprofen) 200 Mg Capsule 200 MG PO q6hrs PRN PRN For Pain (Reported ) Additional med instructions Resume home medications as before Followup Plan Disposition: Home Follow-up plan 1. Followup with primary care provider in 1-2 weeks Discharge Diet: Heart Healthy Discharge Activity: No restrictions Patient Instructions Seek immediate medical attention if any new or worsening signs or symptoms occur. Follow-up Provider: Andria Garcia MD Time spent 60 min admit and d/c together copies to: Andria Garcia MD, Masoud May 04, 2016 19:09
--- NOTE | 2016-05-04 22:32 | NUR ---
Discharge Pt continues to be tolerating diet and no longer having abdominal pain. Pt given information and number to make follow up appointment with Andria Garcia in 1-2 weeks. Pt educated on discharge instructions and given care notes. IV DC'd intact. Pt left with all belongings at 1945 with spouse.
[2016-05-05] MEDS ORDERED: Heparin 5,000 Unit/mL Inj SUBQ SCH (00:30)
== END 2016-05-04 19:52 | disposition home or self-care (01) ==
LOC: SED 06:25 → OSC 11:08
PROVIDERS: ADMIT Internal Medicine; ATTEND Internal Medicine
DX: Q41.9 Congenital absence, atresia and stenosis of small intestine, part unspecified (principal); M34.9 Systemic sclerosis, unspecified; Z46.59 Encounter for fitting and adjustment of other gastrointestinal appliance and device; K22.70 Barrett's esophagus without dysplasia; G89.4 Chronic pain syndrome; K59.04 Chronic idiopathic constipation; G47.10 Hypersomnia, unspecified; K44.9 Diaphragmatic hernia without obstruction or gangrene; M06.9 Rheumatoid arthritis, unspecified; I73.00 Raynaud's syndrome without gangrene; E03.9 Hypothyroidism, unspecified; K21.9 Gastro-esophageal reflux disease without esophagitis; Z79.82 Long term (current) use of aspirin
CPT/HCPCS: 36415; 43752; 71010; 74177; 80053; 83605; 83690; 83735; 85025; 96361; 96374; 96375; 96376; 99285; G0378; J1170; J2405; J2765; J7030; Q9967

== ENCOUNTER 2016-05-23 17:33 | Inpatient (IN) | payer MEDICARE ==
[~2016-05-23] VITALS: Ht 175.3 cm; Wt 74.1 kg
[~2016-05-23 17:33] MED LIST changes: -CYCL10TA9 PO; -KLO5T PO; -trental
[2016-05-23 17:55] VITALS: BP 143/109; PULSE 101; RESP 20; O2SAT 94
--- NOTE | 2016-05-23 18:06 | ED.REPORT ---
HPI-Abd Pain F 40 and Over Date of Service May 23, 2016 ED Provider: Jacky Hayes DO A 55 year old female with a history of multiple small bowel obstructions, scleroderma, peripheral neuropathy, hypothyroidism,Johnston's esophagus without dysplasia, and rheumatoid arthritis presents to the ED complaining of severe abdominal pain onset this morning. The pain was accompanied by diarrhea and later by stomach distension. The pain has progressively gotten worse throughout the day until the point of being unbearable. She claims that she waited too long to come into the ED. She denies any nausea. She visited the ED approximately 1 month ago for small bowel obstruction which was relieved within two hours after being she was given Reglan. The patient has had most of her large intestine removed because of scleroderma. She has had 8 past bowel obstructions, 4 being resolved by surgery and the other 4 resolved on their own. Most recent bowel obstruction surgery was in 2013. The patient had a little bowl of cereal this morning. She knows not to eat when she thinks that she is having a small bowel obstruction. The patient lives in [facility]. Nursing Notes Stated Complaint: POSS SMALL BOWEL OBSTRUCTION Chief Complaint: Female Abdominal Pain Nursing Notes Reviewed: Yes Allergies: Coded Allergies: prednisone (Verified Allergy, Unknown, MOOD SWINGS, 05/04/16) pregabalin (Verified Allergy, Unknown, 05/04/16) Scheduled Abatacept (Orencia) 125 Mg/1 Ml Syringe 125 MG SUBQ WEEKLY Amlodipine (Norvasc) 5 Mg Tablet 5 MG PO AM Ascorbic Acid (Vitamin C) 1,000 Mg Tab.chew 1,000 MG PO DAILY Aspirin (Aspirin) 81 Mg Tablet. 81 MG PO AM Bupropion ER (Wellbutrin SR) 150 Mg Tablet.er 150 MG PO BID Calcium Citrate/Vitamin D2 (Calcium with Vit D Tablet) 1 Each Tablet 1 EACH PO DAILY Clobetasol Propionate/Emoll (Clobetasol Emollient 0.05% Crm) 15 Gm Cream..g. 1 APPL TOP BID Duloxetine (Cymbalta) 60 Mg Capsule.dr 60 MG PO PM Famotidine (Pepcid) 40 Mg Tablet 40 MG PO DAILY Flaxseed (Flaxseed) 340 Gm Powder 1 TSP PO DAILY Folic Acid (Folic Acid) 1 Mg Tablet 1 MG PO PM Furosemide (Furosemide) 40 Mg Tablet 40 MG PO AM Gabapentin (Gabapentin) 300 Mg Capsule 600 MG PO BID Hydroxychloroquine Sulfate (Hydroxychloroquine Sulfate) 200 Mg Tablet 400 MG PO PM Levothyroxine (Levothyroxine) 75 Mcg Tablet 75 MCG PO AM Meloxicam (Meloxicam) 7.5 Mg Tablet 1 TAB PO AM take 1-2 tabs Methadone (Methadone) 5 Mg Tablet 15 MG PO BID Methotrexate Sodium/Pf (Methotrexate 1 gm Vial) 1 Gm Vial 1 GM IJ WEEKLY Multivitamin (Once Daily) 1 Each Tablet 1 EACH PO DAILY Eldridge-3 Fatty Acids/Fish Oil ([place]ridge 3 Fish Oil Softgel) 1 Each Capsule.dr 1 EACH PO DAILY 1200mg po caps Pentoxifylline (Pentoxifylline) 400 Mg Tablet.er 400 MG PO AM Potassium Chloride ER (Potassium Chloride ER) 10 Meq Tablet.er 10 MEQ PO AM TAKE WITH FOOD Potassium Chloride ER (Klor-Con 8) 8 Meq Tablet 8 MEQ PO BID Prazosin (Minipress) 1 Mg Capsule 1 MG PO BID Scheduled PRN Ibuprofen (Ibuprofen) 200 Mg Capsule 200 MG PO q6hrs PRN PRN For Pain General Time Seen by MD: 18:01 Chief Complaint Abdominal pain Hx Obtained From: Patient Arrived By: Walk-in Sudden in Onset?: Yes Onset Occurred: 9 - 12 hours ago Symptom Duration: Since onset Severity: Current: Severe Severity: Maximum: Severe Recent Healthcare: Recent doctor visit Similar Sx Previous: Yes (visited ED [facility] one month ago for similar symptoms.) Past Medical History Past Medical History Multiple Small Bowel Obstructions Rheumatoid arthritis Raynaud's Scleroderma Hypothyroid GERD 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 Dr. Andria Garcia is her PCP. Reports: Thyroid disease Past Surgical History Bowel resection for obstruction secondary to adhesions laparoscopically assisted subtotal colectomy with anastomosis between cecum and distal sigmoid colon. Laparoscopic Toupet fundoplication in approximately 2008. 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 lysis of adhesions by Bryant Soliman in April 2013. lysis of adhesions by Ash Pandya in September 2013,. lysis of adhesions by Ash Pandya in October 2013. Smoking History Never Smoker Social History Alcohol Use: Denies alcohol use Drug Use: Denies drug use Ambulatory Status Independent Review of Systems stomach distension. GI: Reports: Abdominal pain, Diarrhea, Denies: Nausea Complete sys rev & neg: except as marked. Physical Exam Vital Signs Vital Signs (First) Date Time Temp Pulse Resp B/P Pulse Ox O2 Delivery O2 Flow Rate FiO2 05/23/16 17:55 35.8 101 20 143/109 94 Room Air Initial VS: Reviewed General/Constitutional: Awake, Alert Respiratory / Chest: Atraumatic, Breath sounds NL, Breath sounds = bilat, No respiratory distress, No rales, No rhonchi, No wheezing Cardiovascular: Heart rate NL, Regular rhythm, Heart sounds NL, No gallop, No murmurs, No rubs Abdomen: No guarding, No rebound Abdomen is distended. Lower abdominal tenderness without rebound or guarding. Back: Atraumatic, Full range of motion Head / Eyes: Atraumatic, Normocephalic, PERRL, EOMI ENT: Atraumatic, Mucous membranes moist Skin: Atraumatic, Warm, Dry Neurologic: Oriented X3, Speech NL Neck: Atraumatic, Full range of motion Upper Extremity / MS: Atraumatic, Full range of motion Wrist / Hand: Atraumatic, Full range of motion Lower Extremity / Pelvis / MS: Atraumatic, Full range of motion Interpretation & Diagnostics Lab Results Interpretation Result Diagram: 05/24/16 0812 05/24/16 0812 Test 05/23/16 18:48 Prothrombin Time 9.7sec (8.1-12.5) Prothromb Time International Ratio 0.91ratio Magnesium Level 2.1mg/dL (1.6-2.6) ECG Interpretation ECG Interpretation: Rate is 88. Normal sinus rhythm. Time: 19:01 Interpreted by: ED physician X-Ray Abdominal Interpretation IMPRESSION: Bowel obstruction, although exact transition point is not identified. Enteric tube with the tips in the stomach. Dictated by: Scott Palacios M.D. on 05/23/2016 at 19:44 Approved by: Scott Palacios M.D. on 05/23/2016 at 19:47 Interpretation / Wet Read by: Interpret - Radiologist Re-Eval/Medical Decision Med Decision/Clinical Course Initially she was quite uncomfortable and was quick to let us know that the NG tube was the only thing that relieves her pain. She was given Toradol and Dilaudid on arrival but without much improvement. After NG tube was placed a large amount of stomach contents were removed and patient's symptoms began to feel better within 2 hours. She was given the Reglan that seemed to help her at the last hospitalization. As labs returned her lipase was significantly elevated around 1500. Although she was mildly tender in the epigastrium and the majority of her tenderness appeared to be in the lower abdominal quadrants initially. It is unclear to me why the lipase is elevated but with some accompanying tenderness of epigastrium I feel that she does have a diagnosis of pancreatitis. It is noted that this was present at her last hospital admission approximately one month ago. Patient was happy to be feeling so much better after NG placed and fluids given and I recommended admission to further evaluate the pancreas and also to continue the NG suction and monitor for resolution of bowel obstruction. Patient agrees with admission. Source of Hx: Old records Re-Evaluation/Progress : Time of Eval: 22:31 Re-Evaluation/Progress Note: Rechecked patient. Explained test results, diagnosis and plan for admission. Patient understands and agrees with the plan. 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 Ly who accepts patient admit. Counseled Regarding: Diagnosis, Lab results Discharge & Departure Primary Impression: SBO (small bowel obstruction) Additional Impressions: Pancreatitis Chronicity: acute Pancreatitis type: other Qualified Code: K85.8 - Other acute pancreatitis Leukocytosis Leukocytosis type: unspecified Qualified Code: D72.829 - Elevated white blood cell count, unspecified Acute kidney injury Hyperglycemia Lactic acidosis Disposition: ADMITTED TO HOSPITAL Discharge Condition All VS Reviewed: Yes Condition: Stable Referrals: Andria Garcia MD (PCP) Bhavesh Attestation Portions of this note were transcribed by Tj Summers. I, Dr. Hayes personally performed the history, physical exam and medical decision-making; I reviewed and confirmed the accuracy of the information in the transcribed note. Signed by: Bhavesh Taylor, 05/24/2016 0009. copies to: Andria Garcia MD, Gary R DO May 23, 2016 18:06 Tj Summers May 23, 2016 18:48 Aspartate Amino Transf (AST/SGOT) 38U/L (0-50) Alanine Aminotransferase (ALT/SGPT) 31U/L (0-32) Alkaline Phosphatase 96U/L (25-150) Total Protein 8.1g/dL (6.4-8.4) Albumin 4.8g/dL (3.4-5.0) Lipase 1525U/L (13-60) ECG Interpretation ECG Interpretation: Rate is 88. Normal sinus rhythm. Time: 19:01 Interpreted by: ED physician X-Ray Abdominal Interpretation IMPRESSION: Bowel obstruction, although exact transition point is not identified. Enteric tube with the tips in the stomach. Dictated by: Scott Palacios M.D. on 05/23/2016 at 19:44 Approved by: Scott Palacios M.D. on 05/23/2016 at 19:47 Interpretation / Wet Read by: Interpret - Radiologist Re-Eval/Medical Decision Source of Hx: Old records Re-Evaluation/Progress : Time of Eval: 22:31 Re-Evaluation/Progress Note: Rechecked patient. Explained test results, diagnosis and plan for admission. Patient understands and agrees with the plan. 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 Ly who accepts patient admit. Counseled Regarding: Diagnosis, Lab results Discharge & Departure Primary Impression: SBO (small bowel obstruction) Additional Impression: Pancreatitis Disposition: ADMITTED TO HOSPITAL Discharge Condition All VS Reviewed: Yes Condition: Stable Referrals: Andria Garcia MD (PCP) Cyndieibdaja Attestation Portions of this note were transcribed by Tj Summers. I, Dr. Hayes personally performed the history, physical exam and medical decision-making; I reviewed and confirmed the accuracy of the information in the transcribed note. Signed by: Bhavesh Taylor, 05/24/2016 0009. copies to: Andria Garcia MD, Gary R DO May 23, 2016 18:06 Tj Summers May 23, 2016 18:48
[2016-05-23] MEDS ORDERED: 0.9% Sodium Chloride 1,000 ML IV ONE ×3 (18:14→22:38)
[2016-05-23] MEDS ORDERED: HYDROmorphone 1 mg/mL Inj IVPUSH PRN (18:15)
[2016-05-23] MEDS ORDERED: Ondansetron 2 mg/mL 2 mL Inj IVPUSH ONE (18:15)
[2016-05-23] MEDS ORDERED: MetoCLOpramide 5 mg/mL 2 mL Inj IVPUSH ONE (18:50)
[2016-05-23 19:03] LABS: BASOPHILS % (AUTO) 0.4 % (0-3); EOSINOPHILS % (AUTO) 1.9 % (0-5); MONOCYTES % (AUTO) 4.2 % (4-12); Mean Corpuscular Hemoglobin 29.4 pg (27.0-35.0); Mean Corpuscular Volume 90.5 fL (81-100); Platelet Count 318 bil/L (150-400)
[2016-05-23 19:18] LABS: INR 0.91 ratio
[2016-05-23 19:24] LABS: Magnesium 2.1 mg/dL (1.6-2.6)
--- NOTE | 2016-05-23 19:48 | DRSVH ---
PROCEDURE: X-RAY ACUTE ABDOMINAL SERIES ([id number]) INDICATIONS: abdominal pain, history of small bowel obstruction TECHNIQUE: One view chest and two views of the abdomen were acquired. COMPARISON: [facility], CR, XR ABD ACUTE SERIES 3VW, 11/10/2015, 9:36. FINDINGS: Surgical changes and devices: Enteric tube is seen with the tip not included on study however beyond the gastroesophageal junction Chest: Lungs are clear. Heart size is normal. No pleural effusions. No pneumoperitoneum. Abdomen: Diffuse bowel dilatation without definite transition point. Gas is seen in the rectal vault. There are scattered air-fluid levels. Bones: No suspicious bony lesions. IMPRESSION: Bowel obstruction, although exact transition point is not identified. Enteric tube with the tips in the stomach. Dictated by: Scott Palacios M.D. on 05/23/2016 at 19:44 Approved by: Scott Palacios M.D. on 05/23/2016 at 19:47
[2016-05-23] MEDS ORDERED: MetoCLOpramide 5 mg/mL 2 mL Inj IVPUSH PRN (23:35)
[2016-05-23] MEDS ORDERED: Ondansetron 2 mg/mL 2 mL Inj IVPUSH PRN (23:35)
[2016-05-23] MEDS ORDERED: hydrALAZINE 20 mg/mL Inj IV PRN (23:40)
--- NOTE | 2016-05-23 23:48 | PCM.HPMED ---
Subjective Date of Service May 23, 2016 Primary Provider: Admitting Physician: Thea Ly MD Primary Care Physician: Andria Garcia MD Attending Physician: Thea Ly MD Admit Status: From the Emergency Department, Full Admit, Non-Telemetry Chief Complaint: Abdominal pain and distention History of Present Illness: This is a 55-year-old female who has a history of recurrent small bowel obstructions. Some have had to be treated surgically and some have not. Most recent admission was May 04 for this and resolved with conservative measures. Patient does have a history of scleroderma also. She also had fundoplication in 2008 which was requiring revision February 2016. Patient did note that previous admission Reglan did help with her symptomatology. She has had no fevers or chills. She has had no nausea or vomiting but did have significant amount of bilious material when NG tube was placed. Review of Systems: All other review of systems are reviewed and are negative except for as in history of present illness. Allergies Coded Allergies: prednisone (Verified Allergy, Unknown, MOOD SWINGS, 05/04/16) pregabalin (Verified Allergy, Unknown, 05/04/16) Home Medications As obtained from emergency room note Scheduled Amlodipine (Norvasc) 5 Mg Tablet 5 MG PO AM Ascorbic Acid (Vitamin C) 1,000 Mg Tab.chew 1,000 MG PO DAILY Aspirin (Aspirin) 81 Mg Tablet.dr 81 MG PO AM Bupropion ER (Wellbutrin SR) 150 Mg Tablet.er 150 MG PO BID Calcium Citrate/Vitamin D2 (Calcium with Vit D Tablet) 1 Each Tablet 1 EACH PO DAILY Clobetasol Propionate/Emoll (Clobetasol Emollient 0.05% Crm) 15 Gm Cream..g. 1 APPL TOP BID Duloxetine (Cymbalta) 60 Mg Capsule.dr 60 MG PO PM Etanercept (Enbrel) 50 Mg/1 Ml Pen.injctr 50 MG SQ q wednesday 0.98 ml weekly on Sundays Famotidine (Pepcid) 40 Mg Tablet 40 MG PO DAILY Flaxseed (Flaxseed) 340 Gm Powder 1 TSP PO DAILY Folic Acid (Folic Acid) 1 Mg Tablet 1 MG PO PM Furosemide (Furosemide) 40 Mg Tablet 40 MG PO AM Gabapentin (Gabapentin) 300 Mg Capsule 600 MG PO BID Hydroxychloroquine Sulfate (Hydroxychloroquine Sulfate) 200 Mg Tablet 400 MG PO PM Levothyroxine (Levothyroxine) 75 Mcg Tablet 75 MCG PO AM Meloxicam (Meloxicam) 7.5 Mg Tablet 1 TAB PO AM take 1-2 tabs Methadone (Methadone) 5 Mg Tablet 15 MG PO BID Methotrexate Sodium/Pf (Methotrexate 1 gm Vial) 1 Gm Vial 1 GM IJ WEEKLY Multivitamin (Once Daily) 1 Each Tablet 1 EACH PO DAILY Grove-3 Fatty Acids/Fish Oil (Grove 3 Fish Oil Softgel) 1 Each Capsule.dr 1 EACH PO DAILY 1200mg po caps Pentoxifylline (Pentoxifylline) 400 Mg Tablet.er 400 MG PO AM Potassium Chloride ER (Potassium Chloride ER) 10 Meq Tablet.er 10 MEQ PO AM TAKE WITH FOOD Potassium Chloride ER (Klor-Con 8) 8 Meq Tablet 8 MEQ PO BID Prazosin (Minipress) 1 Mg Capsule 1 MG PO BID Scheduled PRN Ibuprofen (Ibuprofen) 200 Mg Capsule 200 MG PO q6hrs PRN PRN For Pain PMH Past Medical History Multiple Small Bowel Obstructions Rheumatoid arthritis Raynaud's Scleroderma Hypothyroid GERD 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 Dr. Andria Garcia is her PCP. Reports: Thyroid disease Past Surgical History Bowel resection for obstruction secondary to adhesions laparoscopically assisted subtotal colectomy with anastomosis between cecum and distal sigmoid colon. Laparoscopic Toupet fundoplication in approximately 2008. 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 lysis of adhesions by Bryant Soliman in April 2013. lysis of adhesions by Ash Pandya in September 2013,. lysis of adhesions by Ash Pandya in October 2013. Social History Hx Alcohol Use: No Hx Substance Use: No Hx Tobacco Use: No Smoking Status: Never Smoker Living Arrangement: with Family Exam Vital Signs Vital Sign - Last Date Time Temp Pulse Resp B/P Pulse Ox O2 Delivery O2 Flow Rate FiO2 05/23/16 17:55 35.8 101 20 143/109 94 Room Air Exam Constitutional: Middle-aged woman in no acute distress Head: Normocephalic atraumatic Eyes: PERRLA DC EOMI Mouth: No lesions Neck: No adenopathy Chest: Clear to auscultation Cor: Regular rate and rhythm S1-S2 without murmur Abdomen: Soft nontender bowel sounds present Extremities: No pedal edema Skin: No rashes Psych: Mood and affect are appropriate Neuro: Alert and oriented 3, motor strength is intact bilaterally Lab and Diagnostics Labs Laboratory Tests 72 Hours Test 05/23/16 18:48 White Blood Count 18.0th/mm3 (3.8-10.1) Red Blood Count 5.14mil/mm3 (3.90-5.20) Hemoglobin 15.1g/dL (12.0-15.6) Hematocrit 46.5% (35.0-46.0) Mean Corpuscular Volume 90.5fL (81-100) Mean Corpuscular Hemoglobin 29.4pg (27.0-35.0) Mean Corpuscular Hemoglobin Concent 32.5% (32.0-37.0) Red Cell Distribution Width 14.8% (12.3-15.4) Platelet Count 318bil/L (150-400) Neutrophils (%) (Auto) 80.0% (40-74) Lymphocytes (%) (Auto) 12.6% (14-46) Monocytes (%) (Auto) 4.2% (4-12) Eosinophils (%) (Auto) 1.9% (0-5) Basophils (%) (Auto) 0.4% (0-3) Prothrombin Time 9.7sec (8.1-12.5) Prothromb Time International Ratio 0.91ratio Sodium Level 142mEq/L (134-144) Potassium Level 4.8mEq/L (3.5-5.2) Chloride Level 103mEq/L (97-108) Carbon Dioxide Level 23mmol/L (18-29) Blood Urea Nitrogen 22mg/dL (6-24) Creatinine 1.06mg/dL (0.57-1.00) Estimat Glomerular Filtration Rate 77mL/min (>59) Glucose Level 167mg/dL (60-99) Lactic Acid Level 2.5mmol/L (0.4-2.0) Calcium Level 9.9mg/dL (8.5-10.1) Magnesium Level 2.1mg/dL (1.6-2.6) Total Bilirubin 0.2mg/dL (0.0-1.2) Aspartate Amino Transf (AST/SGOT) 38U/L (0-50) Alanine Aminotransferase (ALT/SGPT) 31U/L (0-32) Alkaline Phosphatase 96U/L (25-150) Total Protein 8.1g/dL (6.4-8.4) Albumin 4.8g/dL (3.4-5.0) Lipase 1525U/L (13-60) Result Diagram: 05/23/16184705/23/161847 X-Rays, CTs and MRIs Patient Name: FOSTER FELICIANO MR#: [id number] Location: [facility] [place] Ordering Phys: Jacky Hayes DO Date of Service: 05/23/161813 PROCEDURE: X-RAY ACUTE ABDOMINAL SERIES ([id number]) INDICATIONS: abdominal pain, history of small bowel obstruction TECHNIQUE: One view chest and two views of the abdomen were acquired. COMPARISON: [facility], CR, XR ABD ACUTE SERIES 3VW, 11/10/2015, 9: 36. FINDINGS: Surgical changes and devices: Enteric tube is seen with the tip not included on study however beyond the gastroesophageal junction Chest: Lungs are clear. Heart size is normal. No pleural effusions. No pneumoperitoneum. Abdomen: Diffuse bowel dilatation without definite transition point. Gas is seen in the rectal vault. There are scattered air-fluid levels. Bones: No suspicious bony lesions. IMPRESSION: Bowel obstruction, although exact transition point is not identified. Enteric tube with the tips in the stomach. Assessment & Plan # Partial small bowel obstruction, acute, present on admission - Nothing by mouth except ice chips - Continue with at least overnight NG tube to suction - IV Reglan when necessary - We will check CT of abdomen and pelvis with contrast in a.m. # Hypertension, chronic, present on admission - We will give IV hydralazine when necessary # Scleroderma, chronic, present on admission - We will hold her by mouth medications for now # Chronic opiate dependence, present on admission - Patient is on long-acting opiates for pain control - Until she is able to take orals we will go ahead and give IV opiates when necessary # Hypothyroidism, chronic, present on admission - We will give IV levothyroxin while nothing by mouth # DVT prophylaxis - We will place on SCDs and subcutaneous prophylactic heparin # CODE STATUS Patient is full code Pain Evaluation: Adequate Pain Control VTE Prophylaxis: Sub-Q Heparin (Unfractionated) VTE Mechanical Devices: Intermittant Pneumatic CD Resuscitation Status: CPR: Attempt Resuscitation Time spent 60 minutes Thea Ly MD May 23, 2016 23:47
[2016-05-24] VITALS (7 sets, daily range): BP systolic 102–119; BP diastolic 63–87; PULSE 72–86; RESP 16–24; O2SAT 94–98
[2016-05-24 01:35] LABS: APPEARANCE,URINE SLIGHTLY CLOUDY (CLEAR,HAZY); COLOR,URINE DARK YELLOW (YELLOW); OCCULT BLOOD,URINE TRACE (NEGATIVE); PH,URINE 5.5 (5.0-8.0); UROBILINOGEN,URINE NORMAL (NORMAL)
[2016-05-24 01:40] LABS: ICTOTEST,URINE POSITIVE (Negative)
[2016-05-24] MEDS: 0.9% Sodium Chloride 1,000 ML IV SCH ×3 (01:47→19:31)
[2016-05-24] MEDS: Heparin 5,000 Unit/mL Inj SUBQ SCH ×4 (01:47→23:37)
[2016-05-24] MEDS ORDERED: ABAT125S SUBQ (03:53)
--- NOTE | 2016-05-24 04:18 | NUR ---
Admit to MOC received report from ED RN at 0052, pt arrived to floor at 0158 per stretcher accompanied by ep technologist and , pt noted with IVF, NGT, pt a/o able to make needs known, 2 RN skin check done with Hansa Lancaster RN, oriented pt to room and call light system, pt able to ambulate to and from bathroom, NGT patent, on continuous suction, at 0306 am received call from CT dept, regarding abd ct order, schedule to be done at 8am, call light in reach.
[2016-05-24 08:36] LABS: BASOPHILS % (AUTO) 0.5 % (0-3); EOSINOPHILS % (AUTO) 1.5 % (0-5); Mean Corpuscular Hemoglobin 29.2 pg (27.0-35.0); Mean Corpuscular Volume 91.4 fL (81-100); NEUTROPHILS % (AUTO) 78.3 % (40-74); Platelet Count 232 bil/L (150-400)
[2016-05-24] MEDS: Levothyroxine 100 mCg/5 mL Inj IV SCH (09:14)
--- NOTE | 2016-05-24 10:10 | PCM.PNMED ---
Subjective Date of Service May 24, 2016 Subjective Patient is seen and examined. She says that she was seen in the past several times per morning obstruction. She is feeling much better today morning and wants to go home. She would especially like to be be rid of the NG tube. Her nausea is well controlled. She says that she gets pain medications at home and she is not getting them here. Her previous MRCP as well as lipase levels was reviewed with her. 3. She had severe elevation in her lipase at the time of arrival. She says she is not distended. Overnight she was placed on fluids and nausea control, IV medications for her by mouth. Exam Vital Signs Vital Sign - Last Date Time Temp Pulse Resp B/P Pulse Ox O2 Delivery O2 Flow Rate FiO2 05/24/16 10:02 36.7 86 16 102/63 97 Room Air Intake and Output 05/23/16 05/23/16 05/24/16 Cumulative From/Thru 15:00 23:00 07:00 05/23/16 17:55 - 05/24/16 06:08 Intake Total 2000 ml 1379 ml 3379 ml Output Total 950 ml 475 ml 1425 ml Balance 1050 ml 904 ml 1954 ml Intake IV Total 2000 ml 1379 ml 3379 ml Output Urine Total 175 ml 175 ml Gastric Drainage Total 300 ml 300 ml Other 950 ml 950 ml Exam Gen.: No acute distress NG tube is present HEENT: Normocephalic, atraumatic Heart: Regular rate and rhythm no S3-S4 sounds Lungs: Clear to auscultation bilaterally no crackles or wheezes Abdomen: Pain over epigastrium as well as left lower quadrant. Normal bowel sounds. Extremities: Negative for edema Psych: Negative for anxiety Neuro: No focal neurological deficits IVs and Medications IV Fluids NSS 100 cc/hr Medications Reviewed: Medications were reviewed in detail Lab and Diagnostics Result Diagram: 05/24/1681105/24/16811 X-Rays, CTs and MRIs Patient Name: FOSTER FELICIANO MR#: [id number] [place] [facility] [place]ing Phys: Jacky Hayes DO Date of Service: 05/23/161813 PROCEDURE: X-RAY ACUTE ABDOMINAL SERIES ([id number]) INDICATIONS: abdominal pain, history of small bowel obstruction TECHNIQUE: One view chest and two views of the abdomen were acquired. COMPARISON: [facility], CR, XR ABD ACUTE SERIES 3VW, 11/10/2015, 9: 36. FINDINGS: Surgical changes and devices: Enteric tube is seen with the tip not included on study however beyond the gastroesophageal junction Chest: Lungs are clear. Heart size is normal. No pleural effusions. No pneumoperitoneum. Abdomen: Diffuse bowel dilatation without definite transition point. Gas is seen in the rectal vault. There are scattered air-fluid levels. Bones: No suspicious bony lesions. IMPRESSION: Bowel obstruction, although exact transition point is not identified. Enteric tube with the tips in the stomach. Assessment & Plan # Partial small bowel obstruction, acute, present on admission - Nothing by mouth except ice chips - Continue with at least overnight NG tube to suction - IV Reglan when necessary - We will check CT of abdomen and pelvis with contrast in a.m.: This showed some concern for obstruction Acute pancreatitis: Lipase is trending down today. Nausea is well controlled GI is consulted repeat MRCP is ordered after contacting them. Follow-up with labs. Advance diet when lipase normalizes. IV fluids currently running at 1 50 mL/h # Hypertension, chronic, present on admission - We will give IV hydralazine when necessary # Scleroderma, chronic, present on admission - We will hold her by mouth medications for now # Chronic opiate dependence, present on admission - Patient is on long-acting opiates for pain control - Until she is able to take orals we will go ahead and give IV opiates when necessary # Hypothyroidism, chronic, present on admission - We will give IV levothyroxin while nothing by mouth # DVT prophylaxis - We will place on SCDs and subcutaneous prophylactic heparin # CODE STATUS Patient is full code Pain Evaluation: Adequate Pain Control VTE Prophylaxis: Sub-Q Heparin (Unfractionated) VTE Mechanical Devices: Intermittant Pneumatic CD Resuscitation Status: CPR: Attempt Resuscitation Rani Sneed DO May 24, 2016 10:10
--- NOTE | 2016-05-24 10:41 | DRSVH ---
PROCEDURE: CT ABDOMEN AND PELVIS WITH CONTRAST ([id number]) INDICATIONS: sbo TECHNIQUE: After the administration of oral and intravenous contrast, 5 mm thick sections acquired from the diap hragms to the symphysis. 5 mm thick coronal and sagittal reformats were performed. For radiation do se reduction, the following was used: automated exposure control, adjustment of mA and/or kV accordi ng to patient size. COMPARISON: [facility], CT, CT ABD PELVIS W CON, 05/04/2016, 9:22. FINDINGS: Image quality: Excellent. ABDOMEN: Lung bases: Lung bases are clear. Heart size is normal. Solid organs: Liver and spleen are normal in size and enhancement. The gallbladder is unremarkable. There is trace intrahepatic biliary ductal dilatation which appears slightly decreased when compared with the study dated 05/04/16. The common bile duct is grossly normal in caliber. Pancreas enhances no rmally. No adrenal nodules. Kidneys are normal in size and enhancement, without hydronephrosis. Peritoneum and bowel: An NG tube is present, the tip of which is in the gastric fundus. The stomach is partially filled with contrast. The duodenum is decompressed. There is moderate circumferential th ickening of the proximal jejunum. The distal jejunum demonstrates normal caliber and wall thickness. The midportion of the small bowel is moderately distended and is contrast filled. The extent of small bowel dilatation is markedly decreased when compared with the study dated 05/04/16. The distal small bowel demonstrates overall normal caliber and wall thickness and is filled with fluid. The right kayla colon is nonvisualized and may be surgically absent. The left hemicolon is fluid-filled. No free air or free pelvic fluid. Nodes and vessels: No retroperitoneal or mesenteric adenopathy. Aorta and inferior vena cava are no rmal in caliber. Miscellaneous: No ventral hernias. PELVIS: Genitourinary: Bladder wall thickness is normal. Miscellaneous: No inguinal hernias or adenopathy. Bones: No suspicious bony lesions. No vertebral body compression fractures. IMPRESSION: 1. The stomach and small bowel are substantially decompressed when compared with the prior study date d 05/04/16. There is moderate distention of the mid small bowel; however this is contrast filled and n o transition point is visualized. This likely represents interval, partial resolution of the previous bowel obstruction. However, recurrent obstruction or ileus cannot be excluded and continued close cl inical surveillance is recommended. 2. Liquid stool in the colon consistent with diarrhea. 3. Trace intrahepatic biliary ductal dilatation which is decreased from the prior study. Dictated by: Savita Herrmann M.D. on 05/24/2016 at 10:32 Approved by: Savita Herrmann M.D. on 05/24/2016 at 10:39
--- NOTE | 2016-05-24 14:44 | NUR ---
Social Work-initial assessment: Data:See initial assessment. Pt is a 55 y/o female who admitted on 05/23/16 for small bowel obstruction per H&P. Pt's insurance is [facility] and PCP Is Andria Garcia MD. EMR reviewed. Pt's readmission score is 2. SW met with pt at bedside to discuss discharge planning, SW role explained. Pt is alert and oriented x3. Pt resides at home with her where she remains independent with ADls. Pt does drive and does not use any DME. Pt has had HH, but cannot remember the name of the company. Pt has no SNF history. Pt has no [employer] care insurance or [place] benefits. SW discussed DPOA/advanced directive, pt states she has not completed this, SW provided pt with this paperwork. Pt has NG tube in place and has been up independent in her room. Pt's to provide transport home at discharge. SW provided phone number and plan on white board in room. No anticipated discharge needs. SW will continue to follow if needs arise. Assessment:Pt who is independent at baseline. Plan:Pt to discharge home when medically stable via POV. No anticipated discharge needs. SW will continue to follow if needs arise. JOANIE Austin Addendum: 05/24/16 at 1452 by ADDIE CAMACHO Amended: Links added.
--- NOTE | 2016-05-24 16:37 | NUR ---
NGT Patient pulled own NGT around 16:20 stating she had spoken with Dr. Sneed during afternoon rounds that she wanted it out. She insisted she feels better and just started to pull it out and handed me the tube. and MRI staff present in the room when it happened. made aware thru joyce chand. Patient denies N/V this shift. Independent in the room, pain manage with Morphine IV with relief. NPO maintained with Ice chips at this time. Will continue to monitor.
--- NOTE | 2016-05-24 20:38 | CONS ---
[address] [address] CONSULTATION REPORT PATIENT: FOSTER FELICIANO : 1960 MR#: [id number] ADMIT: 05/23/2016 JOB ID: [id number] DATE OF SERVICE: REASON FOR CONSULTATION: Elevated lipase and possible pancreatitis. PHYSICIAN REQUESTING CONSULTATION: Dr. Sneed. HISTORY OF PRESENTING ILLNESS: The patient is a 55-year-old woman who has a history of recurrent small-bowel obstructions whose had had multiple abdominal surgeries which have included subtotal colectomy for colonic inertia, bowel resection for obstruction secondary to adhesions as well as multiple lysis of adhesion procedures. Th patient was in her usual state of health until last night when she developed acute abdominal pain which she stated radiated into her back and she had associated abdominal distention. She rated the pain as being a 10/10. There was no associated nausea or vomiting. She denied any fevers, chills or sweats. Her symptom complex was similar to her presentation in April of this year when she was diagnosed with bowel obstruction. She states that she is on chronic pain medicines at home for chronic pain and upon arrival to the emergency department, she felt that after placement of NG tube her pain markedly improved and then she received IV narcotics. Currently, the patient is without abdominal pain. Has no nausea and vomiting. She has no history of alcohol use. She denies starting any new medicines within the last couple of months. She did switch to Enbrel, however, this was in February, two months prior to her 1st episode of elevated lipase with abdominal pain. She denies any trauma to the abdomen. FAMILY HISTORY: She has no family history of pancreatitis. She has no family history of pancreatic cancer. PAST MEDICAL HISTORY: Significant for rheumatoid arthritis, Raynaud disease, scleroderma, hypothyroidism, gastroesophageal reflux for which she has undergone a [place] fundoplication followed by revision most recently at the [facility]. PAST SURGICAL HISTORY: As mentioned above. SOCIAL HISTORY: Denies any alcohol or tobacco use. She lives with her family. HOME MEDICATIONS: 1. Norvasc. 2. Vitamin C. 3. Aspirin 81 mg. 4. Wellbutrin. 5. Calcium citrate with vitamin D 2. 6. topical ointment. 7. Duloxetine. 8. Enbrel. 9. Famotidine 40 mg daily. 10. Flaxseed. 11. Folic acid. 12. Furosemide. 13. Gabapentin. 14. Hydroxychloroquine sulfate. 15. Levothyroxine. 16. Meloxicam. 17. Methadone. 18. Methotrexate. 19. Multivitamin. 20. Pentoxifylline. 21. Potassium chloride. 22. Prazosin. 23. Ibuprofen p.r.n. REVIEW OF SYSTEMS: His 12-point review of systems is otherwise negative, except as mentioned in the HPI. PHYSICAL EXAMINATION: Vital signs show a temperature of 36.7, her pulse is 86, her blood pressure is 102/63, respiratory rate is 16, O2 saturation 97% on room air. Generally, she is a prowog-dvta-pjsiqwose woman in no apparent distress who is oriented to person, place, time and answers questions appropriately who is ambulating in the room. HEENT: No pallor. No icterus. Oropharynx is clear. Chest exam is clear to auscultation bilaterally. Cardiovascular exam: S1, S2 heard. No murmurs appreciated. Abdomen is soft. She does have some minimal amount of diffuse tenderness. There is no rebound or guarding and bowel sounds are appreciated. Extremities without edema. LABORATORY DATA: On admission, showed a white blood cell count of 18 which has now decreased to 10. Her hemoglobin now is 11.9, hematocrit of 37.3, her MCV is 91.4, platelet count of 232. PT is 9.7, INR 0.91. Sodium 143, potassium 4.2, chloride of 109, CO2 21, BUN of 23, creatinine of 0.76, glucose of 109. Her LFTs were normal on admission and then subsequent repeat today are also normal. Her lipase has improved from admission. On admission, it was 1525 and today it is 446. On previous admission, her small bowel obstruction on May 04, her lipase was 1893. The patient underwent a CT of the abdomen which showed that the liver was seen as normal in size. The gallbladder was unremarkable. There was trace intrahepatic biliary ductal dilation which compared to the study from April 2016 appeared less. The common bile duct is grossly normal in caliber and the pancreas enhances normally. There was contrast partially filling the stomach. The duodenum was compressed. There was moderate circumferential thickening in the proximal jejunum and the distal jejunum demonstrates normal caliber and wall thickness. The midportion of the small bowel, however, is moderately distended and is contrast-filled. Review of MRI from July 20, 2013 that was done for nausea, abdominal pain. It was an MR abdomen without contrast which showed a small amount of debris within the gallbladder likely related to sludge. There was mild prominence of the common hepatic duct and normal caliber bile duct. There was focal dilation of the mid pancreatic duct, but otherwise remainder of the study was unremarkable. ASSESSMENT AND PLAN: A 55-year-old woman with a history of multiple small-bowel obstructions presenting with abdominal pain, elevated lipase and CT scan suggestive of resolving small-bowel obstruction. 1. Lipase. Lipase can be elevated in conditions other than acute pancreatitis and can be seen in bowel obstruction. However, would recommend ruling out the biliary tree and pancreatic duct for any pathology there. However, this I feel is less likely considering her LFTs were normal. Additionally, I would consider other things in the differential which could include autoimmune pancreatitis and therefore would consider checking an antinuclear antibody as well as an IgG-4. She has had a previous MRCP and there was no evidence of pancreas divisum noted. This seems less likely. Additionally, peptic ulcer disease could also cause an elevated lipase. However, what is interesting in our history is that the pain resolved with placement of NG tube within approximately two hours and this was the similar course in her prior admission. So, in summary, would await findings of the MRCP to rule out any biliary ductal or pancreatic ductal pathology. 2. Check TIFFANY and IgG-4. Thank you for allowing me to participate in this patient's care. If you should have any further questions, please not hesitate to contact me. RHODA
--- NOTE | 2016-05-24 20:52 | DRSVH ---
PROCEDURE: MRI ABDOMEN WITH AND WITHOUT CONTRAST ([id number]) INDICATIONS: double duct dilation on CT TECHNIQUE: Coronal HASTE, axial 2D FLASH in- and [id number]; axial breath-hold T2 FSE. Dynamic axial VIBE dur ing the administration of contrast; post-contrast coronal VIBE or 2D FLASH with fat saturation from t he hepatic dome to the iliac crests. Optional diffusion weighted imaging and ADC may be performed. COMPARISON: [facility], MR, ABDOMEN W/O CONTRAST, 07/20/2013, 17:09. [facility] nics Ultrasound, US, ABDOMEN SONOGRAM LIMITED, 07/19/2013, 14:43. [facility], CT, ABD/PEL VIS W/CON (PNL), 04/07/2013, 15:46. [facility], CT, ABD/PELVIS W/CON (PNL), 05/09/2013, 14 :19. [facility], CT, CT ABD PELVIS W CON, 05/11/2015, 17:29. [facility], CT, CT ABD PELVIS W CON, 05/04/2016, 9:22. [facility], CT, CT ABD PELVIS W CON, 05/24/2016, 1 0:27. FINDINGS: Image quality: Excellent. Lung bases: No basal pleural effusions. Heart size is normal. Solid organs: There is mild intrahepatic and extrahepatic biliary dilation. The common bile duct berna ures up to 9 mm, tapering to normal caliber at the ampulla. The finding was present since 2013 and mi nimally increased. There is a small filling defect in the distal common bile duct measuring 2.5 mm, s uspicious for a small biliary duct stone. Gallbladder is normal. No gallstones, gallbladder wall th ickening or pericholecystic fluid collection. Pancreas is normal in morphology. There is mild pancr eatic duct dilation. Overall, the pancreatic duct measures 3.2 mm. There is a focal dilation of the p ancreatic duct in the area of the pancreatic body measuring 5 mm, unchanged from 07/20/2013. The acces becky hepatic duct is visualized and normal in caliber. Liver and spleen are normal in size and enhancement. No adrenal nodules. Both kidneys demonstrate n ormal size and enhancement, without hydronephrosis. Nodes and vessels: No retroperitoneal or mesenteric adenopathy by size criteria. Aorta and inferior vena cava are normal in size. Bowel and peritoneum: Probable asymmetric small bowel thickening, which is better seen on comparison CT. There is a trace amount of free fluid in upper abdomen. Bones and soft tissues: No ventral hernias. Bone marrow is normal in overall signal. IMPRESSION: 1. Intrahepatic and intrahepatic biliary dilation with the common bile duct measuring up to 9 mm. A s mall filling defect is seen in the distal common bile duct measuring 2.5 mm, suspicious for a small b iliary duct stone. 2. The pancreatic duct is also mildly dilated measuring 3.2 mm. There is focal dilation of the pancre atic duct measuring 5 mm in the area of the pancreatic body. This finding is unchanged from 07/20/2013 . 3. Normal gallbladder. No gallstones. 4. Probable small bowel thickening, which is better seen on the comparison CT. 5. A trace amount of free fluid. Dictated by: Jordyn Santana M.D. on 05/24/2016 at 19:56 Approved by: Jordyn Santana M.D. on 05/24/2016 at 20:51
[2016-05-25] MEDS: 0.9% Sodium Chloride 1,000 ML IV SCH ×2 (05:26→09:29)
[2016-05-25 05:58] VITALS: BP 110/72; PULSE 67; RESP 16; O2SAT 99
--- NOTE | 2016-05-25 06:06 | NUR ---
GI Assumed pt care at 1900, pt had no nausea/vomiting throughout night, pt able to tolerate clears.
[2016-05-25 07:28] LABS: BASOPHILS % (AUTO) 0.7 % (0-3); EOSINOPHILS % (AUTO) 5.2 % (0-5); MONOCYTES % (AUTO) 5.2 % (4-12); Mean Corpuscular Hemoglobin 29.6 pg (27.0-35.0); Mean Corpuscular Volume 91.7 fL (81-100); NEUTROPHILS % (AUTO) 54.9 % (40-74); Platelet Count 180 bil/L (150-400)
[2016-05-25] MEDS: Levothyroxine 100 mCg/5 mL Inj IV SCH (07:52)
[2016-05-25] MEDS: Heparin 5,000 Unit/mL Inj SUBQ SCH (07:53)
[2016-05-25 08:13] LABS: Magnesium 1.9 mg/dL (1.6-2.6); Phosphorus 2.6 mg/dL (2.5-4.9)
[2016-05-25] MEDS ORDERED: Pentoxifylline 400 mg ER12 Tablet PO SCH (08:30)
--- NOTE | 2016-05-25 10:37 | NUR ---
IVF/NPO per new orders made patient NPO, as of now. and decreased IVF to 30 ml/hr.
--- NOTE | 2016-05-25 12:46 | PCM.PNMED ---
Subjective Date of Service May 25, 2016 Subjective GASTROENTEROLOGY PROGRESS NOTE Patient states that her pain has improved; tolerating po intake well with diet of clears/liquids. Denies fever, chills, nausea, vomiting, diarrhea. Exam Vital Signs Vital Sign - Last Date Time Temp Pulse Resp B/P Pulse Ox O2 Delivery O2 Flow Rate FiO2 05/25/16 05:58 36.8 67 16 110/72 99 Room Air Intake and Output 05/24/16 05/24/16 05/25/16 Cumulative From/Thru 15:00 23:00 07:00 05/23/16 17:55 - 05/25/16 06:02 Intake Total 1705 ml 1800 ml 6884 ml Output Total 1000 ml 1950 ml 4375 ml Balance 705 ml -150 ml 2509 ml Intake Oral 750 ml 350 ml 1100 ml IV Total 955 ml 1450 ml 5784 ml Output Urine Total 1950 ml 2125 ml Urine/Stool Mix 1000 ml 1000 ml Gastric Drainage Total 300 ml Other 950 ml # Voids 7 7 Exam General: AAOx3; pleasant and cooperative HENT: EOMI, atraumatic; sclera anicteric Cardiac: RRR Respiratory: Clear to auscultation bilaterally; adequate air flow all lugo Abdomen: Soft, mild tenderness noted epigastric and LUQ Extremities: No edema Neuro: CNII-XII grossly intact Psych: Appropriate mood, affect, and responses to questioning; good insight and judgment Lab and Diagnostics Result Diagram: 05/25/16 0720 05/25/16 0720 X-Rays, CTs and MRIs Patient Name: FOSTER VELOZ MR#: [id number] [place] [facility] [place]ing Phys: Jacky Hayes DO Date of Service: 05/23/161813 PROCEDURE: X-RAY ACUTE ABDOMINAL SERIES ([id number]) INDICATIONS: abdominal pain, history of small bowel obstruction TECHNIQUE: One view chest and two views of the abdomen were acquired. COMPARISON: [facility], CR, XR ABD ACUTE SERIES 3VW, 11/10/2015, 9: 36. FINDINGS: Surgical changes and devices: Enteric tube is seen with the tip not included on study however beyond the gastroesophageal junction Chest: Lungs are clear. Heart size is normal. No pleural effusions. No pneumoperitoneum. Abdomen: Diffuse bowel dilatation without definite transition point. Gas is seen in the rectal vault. There are scattered air-fluid levels. Bones: No suspicious bony lesions. IMPRESSION: Bowel obstruction, although exact transition point is not identified. Enteric tube with the tips in the stomach. Assessment & Plan GASTROENTEROLOGY PROGRESS NOTE Ms. Veloz is a 55 year old woman with a complex medical history including recurrent SBO s/p resection, multiple JAS, and history of multiple abdominal surgeries including subtotal colectomy, that presented to [facility] with a one day history of severe abdominal pain with associated radiation to her back and abdominal distention. GI was consulted for further evaluation of her symptoms. CT A/P w/con 05/24: The stomach and small bowel are substantially decompressed when compared with the prior study dated 05/04/16. There is moderate distention of the mid small bowel; however this is contrast filled and no transition point is visualized. This likely represents interval, partial resolution of the previous bowel obstruction. However, recurrent obstruction or ileus cannot be excluded and continued close clinical surveillance is recommended. Liquid stool in the colon consistent with diarrhea. Trace intrahepatic biliary ductal dilatation which is decreased from the prior study. MRCP 05/24: Intrahepatic and intrahepatic biliary dilation with the common bile duct measuring up to 9 mm. A small filling defect is seen in the distal common bile duct measuring 2.5 mm, suspicious for a small biliary duct stone. The pancreatic duct is also mildly dilated measuring 3.2 mm. There is focal dilation of the pancreatic duct measuring 5 mm in the area of the pancreatic body. This finding is unchanged from 07/20/2013. Normal gallbladder. No gallstones. Probable small bowel thickening, which is better seen on the comparison CT. A trace amount of free fluid. Assessments - Acute abdominal pain - Elevated lipase - Choledocholithiasis via MRCP Plan - Follow up auto-immune panels pending; TIFFANY IgG - OK to DC per primary team - ERCP scheduled 05/27 - Will attempt to coordinate with general surgery for cholecystectomy Recommend cholecystectomy per general surgery scheduling availability; removal with timing of ERCP is ideal, but patient is aware that scheduling conflicts may not accommodate. Thank you for this consult. Please do not hesitate to contact us with any further questions or concerns. VTE Prophylaxis: Sub-Q Heparin (Unfractionated) VTE Mechanical Devices: Intermittant Pneumatic CD Resuscitation Status: CPR: Attempt Resuscitation Attending Statement pt seen and examined agree with resident physician note plan for outpatient ERCP with possible cholecystectomy if Dr Woodruff available. Beverly Johnston DO May 25, 2016 12:46 Rhoda Moffett MD May 29, 2016 15:29
--- NOTE | 2016-05-25 13:20 | NUR ---
IV site Noted IV site edema, pt reports tender to touch. IV DC'd, tip intact. Warm pack applied, arm elevated.
--- NOTE | 2016-05-25 13:25 | PCM.DIMED ---
Discharge Instructions Date of Service May 25, 2016 Dates of Hospitalization May 23, 2016 at 23:34 Discharge Diagnosis Discharge Diagnosis # Gall stone pancreatitis,acute,poa # Choledocholithiasis,acute,poa # Hypertension, chronic, present on admission # Scleroderma, chronic, present on admission # Chronic pain, present on admission # Hypothyroidism, chronic, present on admission Diet Other (clear liquid diet until ERCP on Wednesday) Activity Limited until seen by PCP Call your provider Fever or Chills, Shortness of breath, Bleeding, Chest pain, Vomitting, Excessive diarrhea, Weakness (unilateral) Patient Instructions you were hospitalized due to gallstone pancreatitis and choledocholithiasis. Please come back on Wednesday at 10 AM for ERCP which is scheduled at 11:30AM. Please continue clear liquid diet for now. You also need cholecystectomy( gallbladder needs to be taken out) in the future. Please follow-up with after your ERCP and get referral fro surgeon for cholecystectomy. Follow-up plan Follow-up with Dr Moffett on Wednesday at 10 am at [facility] endoscopy suit for ERCP Follow-up Provider: Andria Garcia MD Follow-up with PCP in: 1 week Provider: Rhoda Moffett MD Follow-up in: 1 week (wednesday at 10Am) Jeramie Miller MD May 25, 2016 13:25
--- NOTE | 2016-05-25 14:45 | NUR ---
Discharge Reviewed DC instruction with patient and . Answered all question, stated understanding. All belongings taken. Pt taken down in w/ch by to home in private auto. Per Dr Woodruff office request: Good working phone number is - [phone].
--- NOTE | 2016-05-25 15:19 | NUR ---
Social Work Note - Discharge: D/A: The Pt is a 55 y/o female that was admitted for small bowel obstruction, pancreatitis on 05/23/16. Pt to be discharged today and is scheduled for an ERCP on 05/27. No SW needs identified. P: Pt to discharge home today with providing POV transportation, no SW needs identified. OtPt ERCP scheduled for 05/27. Diana Caldwell MSW Ep[employer] Specialist JOANIE Austin
--- NOTE | 2016-05-25 15:26 | PCM.DC.MED ---
Discharge Summary Date of Service May 25, 2016 Dates of Hospitalization Date of Hospital Admission May 23, 2016 at 23:34 Date of Discharge: May 25, 2016 Providers: Admitting Physician: Thea Ly MD Primary Care Physician: Andria Garcia MD Attending Physician: Thea Ly MD Diagnosis at Time of Discharge Diagnosis at Time of Discharge # Gall stone pancreatitis,acute,poa # Choledocholithiasis,acute,poa # Hypertension, chronic, present on admission # Scleroderma, chronic, present on admission # Chronic pain, present on admission # Hypothyroidism, chronic, present on admission Consultations GI Dr Moffett Procedures XRay, CTs & MRIs PROCEDURE: X-RAY ACUTE ABDOMINAL SERIES ([id number]) IMPRESSION: Bowel obstruction, although exact transition point is not identified. Enteric tube with the tips in the stomach. PROCEDURE: MRI ABDOMEN WITH AND WITHOUT CONTRAST ([id number]) INDICATIONS: double duct dilation on CT IMPRESSION: 1. Intrahepatic and intrahepatic biliary dilation with the common bile duct measuring up to 9 mm. A small filling defect is seen in the distal common bile duct measuring 2.5 mm, suspicious for a small biliary duct stone. 2. The pancreatic duct is also mildly dilated measuring 3.2 mm. There is focal dilation of the pancreatic duct measuring 5 mm in the area of the pancreatic body. This finding is unchanged from 07/20/2013. 3. Normal gallbladder. No gallstones. 4. Probable small bowel thickening, which is better seen on the comparison CT. 5. A trace amount of free fluid. Dictated by: Jordyn Santana M.D. on 05/24/2016 at 19:56 Brief History as per H&P by Dr Ly on 05/23/16 This is a 55-year-old female who has a history of recurrent small bowel obstructions. Some have had to be treated surgically and some have not. Most recent admission was May 04 for this and resolved with conservative measures. Patient does have a history of scleroderma also. She also had fundoplication in 2008 which was requiring revision February 2016. Patient did note that previous admission Reglan did help with her symptomatology. She has had no fevers or chills. She has had no nausea or vomiting but did have significant amount of bilious material when NG tube was placed. Hospital Course # Acute gallstone pancreatitis,poa,improved -Pain improved. Lipase trending down -Scheduled for ERCP on Wednesday at [address] Moffett -Elective cholecystectomy after ERCP,Gi will give referral to surgeon -MRCP shows stone in CBD with dilated ducts -Clear liquid diet until ERCP # Choledocholithiasis,acute -as above # Hypertension, chronic, present on admission -Continue home meds # Scleroderma, chronic, present on admission -Continue home meds # Chronic opiate dependence, present on admission - Continue home meds # Hypothyroidism, chronic, present on admission -Continue home levothyroxine Disposition: Discharged home Condition on discharge stable Patient to come back for ERCP on Wednesday Exam Vital Signs (Last) Date Time Temp Pulse Resp B/P Pulse Ox O2 Delivery O2 Flow Rate FiO2 05/25/16 05:58 36.8 67 16 110/72 99 Room Air Exam General: AAOx3; pleasant and cooperative HENT: EOMI, atraumatic; sclera anicteric Cardiac: RRR Respiratory: Clear to auscultation bilaterally; adequate air flow all lugo Abdomen: Soft, mild tenderness noted epigastric and LUQ Extremities: No edema Neuro: CNII-XII grossly intact Psych: Appropriate mood, affect, and responses to questioning; good insight and judgment Test 05/23/16 18:48 05/24/16 01:02 05/24/16 08:12 05/25/16 07:20 Prothrombin Time 9.7sec (8.1-12.5) Prothromb Time International Ratio 0.91ratio Urine Color Dark yellow (YELLOW) Urine Appearance Slightly cloudy Urine pH 5.5 (5.0-8.0) Urine Specific [place] 1.023 (1.003-1.035) Urine Protein Tracemg/dL (NEG,TRACE) Urine Glucose (UA) Negativemg/dL (NEGATIVE) Urine Ketones Tracemg/dL (NEGATIVE) Urine Occult Blood Trace (NEGATIVE) Urine Nitrite Negative (NEGATIVE) Urine Bilirubin Small (NEGATIVE) Urine Ictotest Positive (Negative) Urine Urobilinogen Normalmg/dL (NORMAL) Urine Leukocyte Esterase Trace (NEGATIVE) Urine RBC 3-10/hpf (0-2) Urine WBC 6-10/hpf (0-5) Urine Epithelial Cells Occasional/hpf (NONE-MOD) Urine Crystals None seen (NONE SEEN) Urine Bacteria Moderate/hpf (NONE-FEW) Urine Hyaline Casts >20/lpf (NONE) Urine Granular Casts None seen (NONE SEEN) Urine Waxy Casts None seen (NONE SEEN) Urine Red Blood Cell Casts None seen (NONE SEEN) Urine White Blood Cell Casts None seen (NONE SEEN) Urine Mucus Present (None Seen) Urine Trichomonas None seen (NONE SEEN) Urine Yeast None (NONE SEEN) Urinalysis Comment None Urine Culture Reflexed Indicated Lactic Acid Level 0.5mmol/L (0.4-2.0) White Blood Count 5.4th/mm3 (3.8-10.1) Red Blood Count 3.62mil/mm3 (3.90-5.20) Hemoglobin 10.7g/dL (12.0-15.6) Hematocrit 33.2% (35.0-46.0) Mean Corpuscular Volume 91.7fL (81-100) Mean Corpuscular Hemoglobin 29.6pg (27.0-35.0) Mean Corpuscular Hemoglobin Concent 32.2% (32.0-37.0) Red Cell Distribution Width 14.7% (12.3-15.4) Platelet Count 180bil/L (150-400) Neutrophils (%) (Auto) 54.9% (40-74) Lymphocytes (%) (Auto) 33.1% (14-46) Monocytes (%) (Auto) 5.2% (4-12) Eosinophils (%) (Auto) 5.2% (0-5) Basophils (%) (Auto) 0.7% (0-3) Sodium Level 142mEq/L (134-144) Potassium Level 3.7mEq/L (3.5-5.2) Chloride Level 111mEq/L (97-108) Carbon Dioxide Level 18mmol/L (18-29) Blood Urea Nitrogen 8mg/dL (6-24) Creatinine 0.52mg/dL (0.57-1.00) Estimat Glomerular Filtration Rate 176mL/min (>59) Glucose Level 82mg/dL (60-99) Calcium Level 8.2mg/dL (8.5-10.1) Phosphorus Level 2.6mg/dL (2.5-4.9) Magnesium Level 1.9mg/dL (1.6-2.6) Total Bilirubin 0.2mg/dL (0.0-1.2) Aspartate Amino Transf (AST/SGOT) 31U/L (0-50) Alanine Aminotransferase (ALT/SGPT) 32U/L (0-32) Alkaline Phosphatase 68U/L (25-150) Total Protein 5.7g/dL (6.4-8.4) Albumin 3.8g/dL (3.4-5.0) Lipase 24U/L (13-60) Procalcitonin 0.11ng/mL (0.00-0.08) Discharge Medications Discharge Medications Abatacept (Orencia) 125 Mg/1 Ml Syringe 125 MG SUBQ WEEKLY (Reported) Amlodipine (Norvasc) 5 Mg Tablet 5 MG PO AM (Reported) Ascorbic Acid (Vitamin C) 1,000 Mg Tab.chew 1,000 MG PO DAILY (Reported) Aspirin (Aspirin) 81 Mg Tablet.dr 81 MG PO AM (Reported) Bupropion ER (Wellbutrin SR) 150 Mg Tablet.er 150 MG PO BID (Reported) Calcium Citrate/Vitamin D2 (Calcium with Vit D Tablet) 1 Each Tablet 1 EACH PO DAILY (Reported) Clobetasol Propionate/Emoll (Clobetasol Emollient 0.05% Crm) 15 Gm Cream..g. 1 APPL TOP BID (Reported) Duloxetine (Cymbalta) 60 Mg Capsule.dr 60 MG PO PM (Reported) Famotidine (Pepcid) 40 Mg Tablet 40 MG PO DAILY Prescribed by: CHACHA LOPEZ DO Flaxseed (Flaxseed) 340 Gm Powder 1 TSP PO DAILY (Reported) Folic Acid (Folic Acid) 1 Mg Tablet 1 MG PO PM (Reported) Furosemide (Furosemide) 40 Mg Tablet 40 MG PO AM (Reported) Gabapentin (Gabapentin) 300 Mg Capsule 600 MG PO BID (Reported) Hydroxychloroquine Sulfate (Hydroxychloroquine Sulfate) 200 Mg Tablet 400 MG PO PM (Reported) Levothyroxine (Levothyroxine) 75 Mcg Tablet 75 MCG PO AM (Reported) Meloxicam (Meloxicam) 7.5 Mg Tablet 1 TAB PO AM (Reported) take 1-2 tabs Methadone (Methadone) 5 Mg Tablet 15 MG PO BID (Reported) Methotrexate Sodium/Pf (Methotrexate 1 gm Vial) 1 Gm Vial 1 GM IJ WEEKLY ( Reported) Multivitamin (Once Daily) 1 Each Tablet 1 EACH PO DAILY (Reported) [place]-3 Fatty Acids/Fish Oil ([place] 3 Fish Oil Softgel) 1 Each Capsule.dr 1 EACH PO DAILY (Reported) 1200mg po caps Pentoxifylline (Pentoxifylline) 400 Mg Tablet.er 400 MG PO AM (Reported) Potassium Chloride ER (Potassium Chloride ER) 10 Meq Tablet.er 10 MEQ PO AM ( Reported) TAKE WITH FOOD Potassium Chloride ER (Klor-Con 8) 8 Meq Tablet 8 MEQ PO BID (Reported) Prazosin (Minipress) 1 Mg Capsule 1 MG PO BID (Reported) As needed Ibuprofen (Ibuprofen) 200 Mg Capsule 200 MG PO q6hrs PRN PRN For Pain (Reported ) Followup Plan Disposition: Home Follow-up plan Follow-up with Dr Moffett on Wednesday at 10 am at [facility] endoscopy suit for ERCP Discharge Diet: Other (clear liquid diet until ERCP on Wednesday) Discharge Activity: Limited until seen by PCP Patient Instructions you were hospitalized due to gallstone pancreatitis and choledocholithiasis. Please come back on Wednesday at 10 AM for ERCP which is scheduled at 11:30AM. Please continue clear liquid diet for now. You also need cholecystectomy( gallbladder needs to be taken out) in the future. Please follow-up with after your ERCP and get referral fro surgeon for cholecystectomy. Follow-up Provider: Andria Garcia MD Follow-up with PCP in: 1 week Provider: Rhoda Moffett MD Follow-up in: 1 week (wednesday at 10Am) Time spent 35 minutes coordinating discharge copies to: Rhoda Moffett MD; Andria Garcia MD, Melaku MD May 25, 2016 15:26
== END 2016-05-25 14:45 | disposition home or self-care (01) | DRG 439 ==
LOC: SED 17:33 → MOC 23:34
PROVIDERS: ADMIT Specialist; ATTEND Specialist
PROC: 0D9670Z Drainage of Stomach with Drainage Device, Via Natural or Artificial Opening (ICD-10-PCS; principal; 2016-05-25)
DX: K85.10 Biliary acute pancreatitis without necrosis or infection (principal); F11.20 Opioid dependence, uncomplicated; Z79.82 Long term (current) use of aspirin; E03.9 Hypothyroidism, unspecified; I10 Essential (primary) hypertension; K80.50 Calculus of bile duct without cholangitis or cholecystitis without obstruction; M34.9 Systemic sclerosis, unspecified; G89.29 Other chronic pain

== ENCOUNTER 2016-05-27 09:55 | Day surgery (SDC) | payer MEDICARE ==
[~2016-05-27] VITALS: Ht 180.3 cm; Wt 69.4 kg
[~2016-05-27 09:55] MED LIST changes: +0.9% Sodium Chloride 1,000 ML IV SCH; +ABAT125S SUBQ; -ETAN50PE SQ; +Lactated Ringer's 1,000 ML IV ONE; +Sodium Chloride LOK Flush 10 mL Syringe IV PRN
[2016-05-27] MEDS ORDERED: EPHEDrine/NS 5 mg/mL 5 mL Syringe ONE (09:56)
[2016-05-27] MEDS ORDERED: Succinylcholine Chloride 20 mg/mL 5 mL Inj ONE (09:56)
[2016-05-27] MEDS ORDERED: fentaNYL-PF 50 mCg/mL 2 mL Inj ONE (09:56)
[2016-05-27] MEDS ORDERED: Propofol 10,000 mCg/mL 20 mL Inj ONE (09:56)
[2016-05-27] MEDS ORDERED: Ondansetron 2 mg/mL 2 mL Inj ONE (09:56)
[2016-05-27] MEDS ORDERED: Lidocaine PF 1% 30 mL Inj ONE (09:56)
[2016-05-27 10:37] VITALS: BP 108/71; PULSE 73; RESP 16; O2SAT 98
[2016-05-27] MEDS ORDERED: Lactated Ringer's 500 ML IV PRN (10:46)
--- NOTE | 2016-05-27 10:46 | PCM.HPANE ---
Patient Data Date of Service: May 27, 2016 Surgeon Admitting Provider: Attending Provider:Rhoda Moffett MD Primary Care Physician:Andria Garcia MD Other Provider:Ildefonso Grullon Anesthesia Reason for Visit Choledocolithiasis Ht/WT & BMI Height (Feet): 5 Height (Inches): 11 Weight (Kilograms): 69.40 Body Mass Index 21.00 Allergies Coded Allergies: prednisone (Verified Allergy, Unknown, MOOD SWINGS, 05/04/16) pregabalin (Verified Allergy, Unknown, 05/04/16) Past Anesthesia History Anesthesia History: Denies:: Abnormal Airway, Anesthesia Reactions, Difficult Intubation, Fam Anesthesia Reaction, Fam Malignant Hypertherm, Malignant Hyperthermia Diabetes History Hx Diabetes?: No MRSA MRSA: No Medications Blood Thinner: Aspirin Last Dose Blood Thinner: May 22, 2016 Home Meds Incl Beta Marybel: No Reported Medications Abatacept (Orencia)125 Mg/1 Ml Kcuskyj287 Mg SUBQ WEEKLY 05/24/16 Ascorbic Acid (Vitamin C)1,000 Mg Tab.chew1,000 Mg PO DAILY Ref 0 07/08/15 Multivitamin (Once Daily)1 Each Tablet1 Each PO DAILY 07/08/15 Methotrexate Sodium/Pf (Methotrexate 1 gm Vial)1 Gm Vial1 Gm IJ WEEKLY 07/08/15 Ibuprofen 200 Mg Desrnpc671 Mg PO q6hrs PRN For Pain Ref 0 07/08/15 Calcium Citrate/Vitamin D2 (Calcium with Vit D Tablet)1 Each Tablet1 Each PO DAILY 07/08/15 Bupropion ER (Wellbutrin SR)150 Mg Tablet.er150 Mg PO BID Ref 0 07/08/15 Flaxseed 340 Gm Powder1 Tsp PO DAILY 11/01/13 Duloxetine (Cymbalta)60 Mg Capsule.dr60 Mg PO PM Ref 0 11/01/13 Folic Acid 1 Mg Tablet1 Mg PO PM 30 Days 11/01/13 Hydroxychloroquine Sulfate 200 Mg Ptoxyd862 Mg PO PM 30 Days Ref 0 11/01/13 Clobetasol Propionate/Emoll (Clobetasol Emollient 0.05% Crm)15 Gm Cream..g.1 Appl TOP BID #1 TUBE 10/05/13 [place]-3 Fatty Acids/Fish Oil ([place] 3 Fish Oil Softgel)1 Each Capsule.dr1 Each PO DAILY 1200mg po caps 09/24/13 Aspirin 81 Mg Tablet.dr81 Mg PO AM #1 BOTTLE Ref 0 09/24/13 Potassium Chloride ER 10 Meq Tablet.er10 Meq PO AM 30 Days Ref 0 TAKE WITH FOOD 09/24/13 Levothyroxine 75 Mcg Lonvot76 Mcg PO AM 30 Days Ref 0 09/24/13 Furosemide 40 Mg Yorwlt58 Mg PO AM 30 Days 09/24/13 Methadone 5 Mg Tnemfz81 Mg PO BID For Pain 09/24/13 Meloxicam 7.5 Mg Tablet1 Tab PO AM 30 Days Ref 0 take 1-2 tabs 09/24/13 Pentoxifylline 400 Mg Tablet.er400 Mg PO AM 30 Days 09/24/13 Gabapentin 300 Mg Jhpjomu808 Mg PO BID 30 Days Ref 0 09/24/13 Amlodipine (Norvasc)5 Mg Tablet5 Mg PO AM 30 Days Ref 0 09/24/13 Prazosin (Minipress)1 Mg Capsule1 Mg PO BID 09/24/13 Discontinued Reported Medications Potassium Chloride ER (Klor-Con 8)8 Meq Tablet8 Meq PO BID Ref 0 07/08/15 Discontinued Scripts Famotidine (Pepcid)40 Mg Mwomcb06 Mg PO DAILY #30 TABLET Prov:Jeff Mueller DO 05/11/15 History History of ENT Problems?: No HEENT History: Positive for:: Sinus Problem (hx of sinus surg/ resolved AMBERLY ) Denies:: Abnormal Airway Cataracts Difficult Intubation Dysphagia Hearing Problem Hx of Heart Problems?: Yes Cardiovascular History: Positive for:: Chest Pain (pulmonary ) Denies:: AICD Atrial Fibrillation Cardiac Surgery Congestive Heart Failure Edema Heart Murmur Hypertension Irregular Heartbeat Pacemaker Thrombophlebitis Valvular Heart Disease Hx of Respiratory Problem?: Yes Respiratory History: Positive for:: Pneumonia (2003) Use of C-PAP Machine (amberly pos) Denies:: Asthma COPD Chest Surgery Cough Dyspnea Emphysema Hemoptysis Oxygen Administration Tuberculosis Hx Neurologic Problems?: No Neurological History: Denies:: Alzheimer's Disease CVA Dementia Dizziness Headaches Multiple Sclerosis Parkinson's Disease Seizures Hx of GI Problems?: Yes Gastrointestinal History: Positive for:: Gall Bladder Disease Gastroesphageal Reflux Gastrointestinal Bleeding Heartburn Hiatal Hernia Denies:: Cirrhosis Diverticulitis Hepatitis Liver Disease Rectal Bleeding Other GI Pertinent History: HX OF SMALL BOWEL OBSTRUCTION Hx of Problems?: No Genitourinary History: Denies:: HX of Hemodialysis Kidney Stones Urinary Tract Infection HX of Peritoneal Dialysis: No Female Hx: Denies:: Currently Endometriosis Pelvic Inflammatory Problems with Breasts? Skin History: Positive for:: History Skin Disorders? (scleraderma) Hx Musculoskeletal Problems?: Yes (CREST syndrome, primary manifestation Reynauds) Musculoskeletal History: Positive for:: Fibromyalgia Musculoskeletal Trauma (wrist and toe surg) Denies:: Back Injury Joint Replacement Hx of Psycho/Social Problems?: No Psycho Social History: Positive for:: Hx Depression Denies:: Anxiety Bipolar Disorder Suicide Attempt Hx Surgeries?: Yes (COLON RESECTION, SEVERAL OBSTRUCTIONS) Hx Any Other Health Problems?: Yes Other History: Positive for:: Hospitalization Thyroid Disease (hypothyroidism) Denies:: Cancer Endocrine Disease History Blood Transfusions: Positive for:: Blood Transfuse Reaction Denies:: Blood Transfusions Hx Diabetes: No Hx Alcohol Use: NoHx Substance Use: No Smoking Status: Never Smoker Have You Smoked inLast 12 mo: No Stop/Bang Treated for Sleep Apnea?: No Do You Have a CPAP Machine?: No S-Snoring: Do You Snore Loudly: No T-Tired: feel tired, fatigued: No O-Obsered: Observed not breath: No P-Blood Pressure: treated: No B- Body Mass Index > 35 kg/m2: No A- Age over 50: Yes N- Neck Large Circumference: No G- Gender Male: No AMBERLY Total Score: 1 AMBERLY Risk Assessment: Low Risk, <3 Yes Risk Assessment Category Category 1A: Patient has history of documented sleep apnea, and HAS NOT received any narcotic, sedative or anesthesia administration during this stay. Category 1B: Patient has history of documented sleep apnea, and HAS received any narcotic , sedative or anesthesia administration during this stay Category 2: Patient has SUSPECTED Obstructive Sleep Apnea, and HAS received any narcotic , sedative or anesthesia administration during this stay. Category 3: Patient has SUSPECTED Obstructive Sleep Apnea and HAS NOT received narcotic, sedative or anesthesia administration during this stay. Category 4: Outpatient in Procedural Areas with known sleep apnea or who screen positive for High Risk via the STOP/BANG questionnaire. Exam Exam Vital Signs Vital Signs Date Time Temp Pulse Resp B/P Pulse Ox O2 Delivery O2 Flow Rate FiO2 05/27/16 10:37 37.0 73 16 108/71 98 Room Air General Appearance: Alert, Oriented X3, Cooperative HEENT/AIRWAY: MP 2, Neck Movement (OK), Mouth Opening (Wide) Lungs: Clear to Auscultation, Normal Air Movement Heart: Regular Rate/Rhythm, Normal S1, Normal S2 Plan Impression Patient chart reviewed, patient interviewed and anesthestic plan with risks, benefits, and alternatives discussed, and informed consent obtained. NPO Status: all day ASA Physical Status: ASA3 Severe Disease Anesthetic Plan: GA Bene/Risks/Altern/Consents: Yes HP Complete Prior to Induction: Yes Alex France MD May 27, 2016 10:41
[2016-05-27] MEDS ORDERED: HYDROmorphone 1 mg/mL Inj IVPUSH PRN (10:50)
[2016-05-27] MEDS ORDERED: Ondansetron 2 mg/mL 2 mL Inj IVPUSH PRN (10:50)
[2016-05-27] MEDS ORDERED: fentaNYL-PF 50 mCg/mL 2 mL Inj IVPUSH PRN (10:50)
[2016-05-27] MEDS: Lactated Ringer's 1,000 ML IV SCH ×2 (11:21→12:28)
[2016-05-27 12:05] VITALS: BP 142/79; PULSE 80; RESP 15; O2SAT 97
[2016-05-27 12:10] VITALS: BP 135/85; PULSE 82; RESP 17; O2SAT 99
[2016-05-27 12:15] VITALS: BP 130/81; PULSE 86; RESP 17; O2SAT 96
[2016-05-27 12:29] VITALS: BP 139/78; PULSE 84; RESP 15; O2SAT 95
--- NOTE | 2016-05-27 12:29 | PCM.ANEP1 ---
Post Anesthesia Phase 1 PACU Phase 1 Assessment Date of Service: May 27, 2016 Vital Signs Vital Signs Date Time Temp Pulse Resp B/P Pulse Ox O2 Delivery O2 Flow Rate FiO2 05/27/16 12:15 86 17 130/81 96 Room Air 05/27/16 12:10 82 17 135/85 99 Simple Mask 10 05/27/16 12:05 36.9 80 15 142/79 97 Simple Mask 10 05/27/16 10:37 37.0 73 16 108/71 98 Room Air Anesthetic Administered: GA Level of Alertness: Awake, talking MACKEY's with Equal Strength: Yes Nausea or Vomiting: No Oxygen Delivery: Simple Mask Lungs: Normal Air Movement Alex France MD May 27, 2016 12:29
[2016-05-27 12:37] VITALS: BP 122/77; PULSE 78; RESP 16; O2SAT 97
--- NOTE | 2016-05-27 13:03 | PCM.ANEP2 ---
Post Anesthesia Evaluation ASA/CMS Post Anesthesia Date of Service: May 27, 2016 VS in Patient's Normal Range?: Yes Resp Stable; Airway Patent?: Yes CV Function & Hydration Stable: Yes Mental Status Recovered?: Yes Pain control Satisfactory?: Yes N/V Control Satisfactory?: Yes Alex France MD May 27, 2016 13:03
--- NOTE | 2016-05-27 13:06 | DRSVH ---
PROCEDURE: X-RAY E.R.C. BILIARY DUCTS ([id number]) INDICATIONS: CHOLEDOCOLITHIASIS TECHNIQUE: Fluoroscopic spot films were acquired by the gastroenterology service during ERCP procedu re. COMPARISON: [facility], MR, MR ABD W&WO CON, 05/24/2016, 16:29. FINDINGS: Exam is limited to 5 submitted images. Within the limits contrast media has been administe red and the extrahepatic bile duct is prominent. A sweeping balloon catheter is noted and no definit e intraluminal filling defects are seen. IMPRESSION: Limited exam demonstrating prominence of the extrahepatic biliary duct and sweeping ballo on catheter. Dictated by: Alon MONDRAGON Interpreted: Jordyn Santana MD on 05/27/2016 at 13:04 Transcribed by: NICK on 05/27/2016 at 13:05 Approved by: Jordyn Santana M.D. on 05/27/2016 at 17:26
--- NOTE | 2016-05-27 13:32 | ENDO ---
[address] [address] ENDOSCOPY PROCEDURE PATIENT: FOSTER FELICIANO : 1960 MR#: [id number] ADMIT: 05/27/2016 JOB ID: [id number] DATE OF SERVICE: 05/27/2016 PROCEDURE: Endoscopic retrograde cholangiopancreatography. INDICATION: The patient was recently admitted to the hospital for pancreatitis, and MRCP performed at that time revealed a filling defect suggestive of choledocholithiasis. ASA CLASSIFICATION, MALLAMPATI SCORE AND MEDICATIONS: Please see Dr. Alex France's anesthesia report for details regarding ASA classification, Mallampati score and medications. INSTRUMENTS USED: [id number], as well as a [id number]. PROCEDURE DETAILS: After informed consent was obtained, the patient was brought into the GI suite, where she was placed under general anesthesia and then placed in the standard ERCP position. The standard upper endoscope was inserted through the bite block and advanced under direct visualization without difficulty to the second portion of the duodenum. FINDINGS: 1. Normal appearing duodenal bulb, first and second portions. 2. Normal appearing pylorus and antrum. 3. Normal appearing gastric body. 4. Retroflexed views in the gastric body revealed changes consistent with the patient's history of [place] fundoplication. 5. There was a linear area of erythema with submucosal hemorrhage extending from the proximal gastric body to the GE junction. Appearance was consistent with recent surgery. 6. The GE junction was at approximately 45 cm. At the GE junction there was erythema extending from the GE junction extending proximally approximately 2 cm at the 11 o'clock position. No active bleeding was seen. 7. Otherwise, the duodenoscope was introduced through the bite block and advanced without difficulty to the second portion of the duodenum. FINDINGS: 1. The ampulla was identified, and bile was seen flowing from the ampulla. Head Chef films with fluoroscopy were taken prior to start of procedure. 2. Using a [employer] Dreamtome, which was 7-Mosotho, the papilla was cannulated and then under wire guidance advanced. I gained access into the biliary tree. This was confirmed by injection of contrast, which revealed a dilated bile duct measuring approximately 11 mm. 3. The intrahepatics filled, as well as filling was noted in the gallbladder. 4. A small sphincterotomy was performed. Following sphincterotomy, there was a cholesterol-type stones that measured approximately 2-3 mm that was seen at the papilla. 5. Using a 12-mm inject from below balloon, three balloon sweeps with contrast injection were performed which revealed no further filling defects. 6. Final fluoroscopic images demonstrated rapid drainage of contrast from the biliary tree. IMPRESSION: Choledocholithiasis, status post endoscopic retrograde cholangiopancreatography with sphincterotomy and balloon sweep. RECOMMENDATIONS: 1. Avoid NSAIDs and anticoagulants for 72 hours. 2. Follow up with Dr. Monalisa Woodruff for cholecystectomy. COMPLICATIONS: None. ESTIMATED BLOOD LOSS: Less than 5 mL.
== END 2016-05-27 23:59 | disposition home or self-care (01) ==
LOC: END 09:55
PROVIDERS: ATTEND Internal Medicine Gastroenterology
DX: K80.50 Calculus of bile duct without cholangitis or cholecystitis without obstruction (principal); K85.90 Acute pancreatitis without necrosis or infection, unspecified; I10 Essential (primary) hypertension; M34.9 Systemic sclerosis, unspecified; G89.4 Chronic pain syndrome; E03.9 Hypothyroidism, unspecified; Z79.82 Long term (current) use of aspirin
CPT/HCPCS: 43262; 43264; 74328; J0330; J2250; J2405; J3010; J7120; Q9967

== ENCOUNTER 2016-05-30 16:03 | Emergency (ER) | payer MEDICARE ==
[~2016-05-30] VITALS: Ht 180.3 cm; Wt 69.5 kg
[~2016-05-30 16:03] MED LIST changes: -0.9% Sodium Chloride 1,000 ML IV SCH; -FAMO40TA72 PO; -Lactated Ringer's 1,000 ML IV ONE; -POTA8TAB3 PO; -Sodium Chloride LOK Flush 10 mL Syringe IV PRN
[2016-05-30 16:06] VITALS: BP 157/98; PULSE 63; RESP 14
--- NOTE | 2016-05-30 16:17 | ED.REPORT ---
HPI-Abd Pain F 40 and Over Date of Service May 30, 2016 ED Provider: Dr. Jeff Box MD A 55 year old female with a history of multiple small bowel obstructions, pancreatitis, scleroderma, peripheral neuropathy, hypothyroidism and Johnston's esophagus without dysplasia presents to the ED complaining of abdominal pain that began 3 days ago. Patient was recently seen in the ED on 05/23 for similar abdominal pain, she was admitted to the hospital for a small bowel obstruction. She recently diagnosed with choledocholithiasis after an endoscopy on 05/27 and was discharged in good condition with a plan to schedule a cholecystectomy with Dr. Woodruff. Associated symptoms included nausea and vomiting. Nursing Notes Stated Complaint: POSS GALL STONES Chief Complaint: Female Abdominal Pain Nursing Notes Reviewed: Yes Allergies: Coded Allergies: prednisone (Verified Allergy, Unknown, MOOD SWINGS, 05/04/16) pregabalin (Verified Allergy, Unknown, 05/04/16) Scheduled Abatacept (Orencia) 125 Mg/1 Ml Syringe 125 MG SUBQ WEEKLY Amlodipine (Norvasc) 5 Mg Tablet 5 MG PO AM Ascorbic Acid (Vitamin C) 1,000 Mg Tab.chew 1,000 MG PO DAILY Aspirin (Aspirin) 81 Mg Tablet.dr 81 MG PO AM Bupropion ER (Wellbutrin SR) 150 Mg Tablet.er 150 MG PO BID Calcium Citrate/Vitamin D2 (Calcium with Vit D Tablet) 1 Each Tablet 1 EACH PO DAILY Clobetasol Propionate/Emoll (Clobetasol Emollient 0.05% Crm) 15 Gm Cream..g. 1 APPL TOP BID Duloxetine (Cymbalta) 60 Mg Capsule.dr 60 MG PO PM Flaxseed (Flaxseed) 340 Gm Powder 1 TSP PO DAILY Folic Acid (Folic Acid) 1 Mg Tablet 1 MG PO PM Furosemide (Furosemide) 40 Mg Tablet 40 MG PO AM Gabapentin (Gabapentin) 300 Mg Capsule 600 MG PO BID Hydroxychloroquine Sulfate (Hydroxychloroquine Sulfate) 200 Mg Tablet 400 MG PO PM Levothyroxine (Levothyroxine) 75 Mcg Tablet 75 MCG PO AM Meloxicam (Meloxicam) 7.5 Mg Tablet 1 TAB PO AM take 1-2 tabs Methadone (Methadone) 5 Mg Tablet 15 MG PO BID Methotrexate Sodium/Pf (Methotrexate 1 gm Vial) 1 Gm Vial 1 GM IJ WEEKLY Multivitamin (Once Daily) 1 Each Tablet 1 EACH PO DAILY Dardanelle-3 Fatty Acids/Fish Oil (Dardanelle 3 Fish Oil Softgel) 1 Each Capsule.dr 1 EACH PO DAILY 1200mg po caps Pentoxifylline (Pentoxifylline) 400 Mg Tablet.er 400 MG PO AM Potassium Chloride ER (Potassium Chloride ER) 10 Meq Tablet.er 10 MEQ PO AM TAKE WITH FOOD Prazosin (Minipress) 1 Mg Capsule 1 MG PO BID Scheduled PRN Ibuprofen (Ibuprofen) 200 Mg Capsule 200 MG PO q6hrs PRN PRN For Pain General Time Seen by MD: 16:16 Chief Complaint Abdominal pain Hx Obtained From: Patient Arrived By: Walk-in Sudden in Onset?: No Onset Occurred: 3 days ago Symptom Duration: Since onset Progression since Onset: Unchanged Location: : LUQ Quality: Same as prior Radiation: : Does not radiate Severity: Current: Moderate Severity: Maximum: Severe Associated with: Reports: Nausea, Vomiting Pertinent Negative: Pt denies other symptoms Recent Healthcare: Recent doctor visit, Recent hospitalization Risk Factors )( AAA Risk Stratification Risk factors reviewed Past Medical History Past Medical History Multiple Small Bowel Obstructions Rheumatoid arthritis Raynaud's Scleroderma Hypothyroid GERD 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 Dr. Andria Garcia is her PCP. Reports: Thyroid disease Past Surgical History Bowel resection for obstruction secondary to adhesions laparoscopically assisted subtotal colectomy with anastomosis between cecum and distal sigmoid colon. Laparoscopic Toupet fundoplication in approximately 2008. Choledocholithiasis performed - 05/27/2016 subtotal colectomy for colonic inertia in March 2013 by Deshawn Oliver. lysis of adhesions by Bryant Soliman in April 2013. lysis of adhesions by Ash Pandya in September 2013,. lysis of adhesions by Ash Pandya in October 2013. Smoking History Never Smoker Social History Alcohol Use: Denies alcohol use Drug Use: Denies drug use Other Social History: Good social support, Local resident Ambulatory Status Independent Review of Systems Constitutional: Denies: Chills, Fever Respiratory: Denies: Shortness of breath Cardiovascular: Denies: Chest pain GI: Reports: Abdominal pain, Nausea, Vomiting Complete sys rev & neg: except as marked. Neurologic: Denies: Change LOC Physical Exam Exam deferred till patient pain improved. Vital Signs Vital Signs (First) Date Time Temp Pulse Resp B/P Pulse Ox O2 Delivery O2 Flow Rate FiO2 05/30/16 16:06 35.8 63 14 157/98 Initial VS: Reviewed Head / Eyes: Atraumatic, Normocephalic, PERRL ENT: Mucous membranes moist Neck: Supple Extremities: No swelling, No tenderness Neurologic: Alert, Oriented, Nonfocal Psychiatric: Behavior normal, Normal thought content Distress / Hydration: Positive: Distress moderate Appearance / Presentation: Positive: Frail Respiratory / Chest: Atraumatic, No respiratory distress Cardiovascular: Heart rate NL Abdomen: Atraumatic Interpretation & Diagnostics Lab Results Interpretation Result Diagram: 05/30/16 1730 05/30/16 1730 Test 05/30/16 17:30 White Blood Count 5.7th/mm3 (3.8-10.1) Red Blood Count 4.06mil/mm3 (3.90-5.20) Hemoglobin 12.0g/dL (12.0-15.6) Hematocrit 36.4% (35.0-46.0) Mean Corpuscular Volume 89.7fL (81-100) Mean Corpuscular Hemoglobin 29.6pg (27.0-35.0) Mean Corpuscular Hemoglobin Concent 33.0% (32.0-37.0) Red Cell Distribution Width 14.1% (12.3-15.4) Platelet Count 241bil/L (150-400) Neutrophils (%) (Auto) 66.6% (40-74) Lymphocytes (%) (Auto) 25.1% (14-46) Monocytes (%) (Auto) 4.6% (4-12) Eosinophils (%) (Auto) 2.1% (0-5) Basophils (%) (Auto) 0.7% (0-3) Prothrombin Time 10.3sec (8.1-12.5) Prothromb Time International Ratio 0.96ratio Sodium Level 139mEq/L (134-144) Potassium Level 4.1mEq/L (3.5-5.2) Chloride Level 100mEq/L (97-108) Carbon Dioxide Level 25mmol/L (18-29) Blood Urea Nitrogen 8mg/dL (6-24) Creatinine 0.59mg/dL (0.57-1.00) Estimat Glomerular Filtration Rate 152mL/min (>59) Glucose Level 95mg/dL (60-99) Lactic Acid Level 0.8mmol/L (0.4-2.0) Calcium Level 9.0mg/dL (8.5-10.1) Magnesium Level 1.9mg/dL (1.6-2.6) Total Bilirubin 0.3mg/dL (0.0-1.2) Aspartate Amino Transf (AST/SGOT) 20U/L (0-50) Alanine Aminotransferase (ALT/SGPT) 22U/L (0-32) Alkaline Phosphatase 73U/L (25-150) Total Protein 6.7g/dL (6.4-8.4) Albumin 4.1g/dL (3.4-5.0) Lipase 16U/L (13-60) Re-Eval/Medical Decision Med Decision/Clinical Course Recurrent abdominal pain with a history of bowel obstructions and recent choledocholithiasis. Care transferred to Dr. Guy. Counseled Regarding: Diagnosis, Lab results, Need for admission Discharge & Departure Shift Change Sign-Out Patient Care Transferred: Yes Discussed Complaint(s): Yes Laboratory Evaluation: Ordered, not yet done Response to Therapy: Improved Primary Impression: Hx SBO Disposition: ADMITTED TO HOSPITAL Discharge Condition All VS Reviewed: Yes Condition: Stable Referrals: Andria Garcia MD (PCP) Care Transferred to: Dr. Guy Care Transferred at: 18:00 Scribe Attestation Portions of this note were transcribed by Tre Dow. I, Dr. Matthew Box personally performed the history, physical exam and medical decision-making; I reviewed and confirmed the accuracy of the information in the transcribed note. Signed by: Bhavesh Soler, 05/30/16 1800. copies to: Andria Garcia MD, Timothy S DO May 30, 2016 16:17 TRE DOW May 30, 2016 16:28
[2016-05-30] MEDS ORDERED: 0.9% Sodium Chloride 1,000 ML IV ONE (16:27)
[2016-05-30] MEDS ORDERED: Ketorolac 15 mg/mL Inj IVPUSH ONE (16:30)
[2016-05-30] MEDS ORDERED: HYDROmorphone 1 mg/mL Inj IM ONE (16:30)
[2016-05-30] MEDS: Ondansetron 2 mg/mL 2 mL Inj IVPUSH PRN ×2 (16:55→18:25)
[2016-05-30] MEDS: HYDROmorphone 1 mg/mL Inj IVPUSH PRN ×2 (17:03→20:03)
[2016-05-30 17:43] LABS: BASOPHILS % (AUTO) 0.7 % (0-3); EOSINOPHILS % (AUTO) 2.1 % (0-5); MONOCYTES % (AUTO) 4.6 % (4-12); Mean Corpuscular Hemoglobin 29.6 pg (27.0-35.0); Mean Corpuscular Volume 89.7 fL (81-100); NEUTROPHILS % (AUTO) 66.6 % (40-74); Platelet Count 241 bil/L (150-400)
[2016-05-30 17:58] LABS: INR 0.96 ratio
[2016-05-30 18:03] LABS: Magnesium 1.9 mg/dL (1.6-2.6)
[2016-05-30] MEDS ORDERED: Iohexol 300 mg/mL 30 mL Inj PO ONE (18:10)
[2016-05-30] MEDS ORDERED: Promethazine Inj 12.5 MG in Dextrose 5%-Pha MIX 50 ML IV ONE (18:55)
--- NOTE | 2016-05-30 18:57 | DRSVH ---
PROCEDURE: CT ABDOMEN AND PELVIS WITH CONTRAST ([id number]) INDICATIONS: abd pain TECHNIQUE: After the administration of intravenous contrast, 5 mm thick sections acquired from the diaphragm to the symphysis. 5 mm coronal and sagittal reformats were acquired. For radiation dose reduction, the following was used: automated exposure control, adjustment of mA and/or kV according to patient siz e. COMPARISON: [facility], CT, CT ABD [facility]EL[facility] CON, [facility]24[facility]2016[facility] 3[facility]W, 05/23/2016, 19:02. [facility], CT, CT ABD PELVIS W CON, 05/04/2016, 9:22. [facility], CR, XR KUB, 11/10/2015, 12:06. [facility], CR, XR ABD ACUTE SERIES 3VW, 11/10/2015, 9:36. [facility], CR, XR BARIUM SWALLOW ESOPHAGUS, , 11:35. [facility], CT, CT ABD PELVIS W CON, 05/11/2015, 17:29. [facility], CR, ABD ACUTE SERIES, 11/07/2013, 8:03. [facility], CR, ABD ACUTE SERIES, 014, 9:27. [facility], CR, SMALL BOWEL, BARIUM, 11/01/2013, 12:09. [facility] l, CR, ABD ACUTE SERIES, 10/20/2013, 8:43. [facility], CT, ABD/PELVIS W/CON (PNL), 014, 14:19. [facility], CR, ABD ACUTE SERIES, 10/16/2013, 13:05. [facility], CR, ABD ACUTE SERIES, 10/07/2013, 19:49. [facility], CR, ABD ACUTE SERIES, 10/06/2013, 9: 30. [facility], CT, ABD/PELVIS W/CON (PNL), 10/05/2013, 12:38. [facility], C T, ABD/PELVIS W/CON (PNL), 09/25/2013, 19:15. [facility], CR, ABD ACUTE SERIES, 09/24/2013 , 19:45. [facility], , ABDOMEN ACUTE SERIES, 09/23/2013, 15:50. [facility], MR, Harley BDOMEN W/O CONTRAST, 07/20/2013, 17:09. [facility], CT, ABD/PELVIS W/CON (PNL), 07/18/2013 , 17:04. [facility], CR, ABD ACUTE SERIES, 05/11/2013, 10:11. [facility], CT , ABD/PELVIS W/CON (PNL), 05/09/2013, 14:19. [facility], CT, ABD/PELVIS W/CON (PNL), 04/07, 15:46. [facility], CR, ABD 1VIEW SITZ MARKER STUDY, 01/04/2013, 7:24. [facility], CT, ABD/PELVIS W/CON (PNL), 12/23/2012, 11:13. [facility], ABDOMEN-COMPLETE, , 12:25 PM. FINDINGS: Image quality: Excellent. ABDOMEN: Lung bases: Lung bases are clear. Heart size is normal. Solid organs: Liver and spleen are normal in size and enhancement. Gallbladder is within normal hoyt its. Mild intrahepatic ductal dilatation is not significantly changed compared to prior examination.. Pancreas enhances normally. No adrenal nodules. Kidneys demonstrate normal size and enhancement, without hydronephrosis. Peritoneum and bowel: Bowel loops demonstrate normal wall thickness and caliber. Large amount of sto ol noted in the sigmoid colon and rectum. No free fluid or air. Appendix is not definitely visualize d, however, no free fluid or inflammatory changes identified in the right lower quadrant. Nodes and vessels: No retroperitoneal or mesenteric adenopathy by size criteria. Aorta and inferior vena cava are normal in size. Miscellaneous: No ventral hernias. PELVIS: Genitourinary: Bladder wall thickness is normal. Miscellaneous: No inguinal hernias or adenopathy. Bones: No suspicious bony lesions. No vertebral body compression fractures. IMPRESSION: 1. Severe fecal loading involving the sigmoid colon and rectum. Please correlate with clinical find ings. 2. Mild intrahepatic biliary dilatation is not significantly changed compared to 05/24/16. Please co rrelate with laboratory data. 3. No free fluid or air. 4. No inflammatory changes. Dictated by: Radha Coleman MD, PhD on 05/30/2016 at 18:49 Approved by: Radha Coleman MD, PhD on 05/30/2016 at 18:56
[2016-05-30] MEDS ORDERED: Promethazine Inj 12.5 MG in 0.9% Sodium Chloride 50 ML IV ONE (19:05)
[2016-05-30] MEDS ORDERED: PROM25TA14 PO (19:33)
[2016-05-30 20:16] VITALS: BP 122/75; PULSE 72; RESP 18; O2SAT 99
[2016-05-30 20:17] VITALS: BP 122/75; PULSE 72; RESP 18; O2SAT 99
== END 2016-05-30 20:18 | disposition home or self-care (01) ==
LOC: SED 16:03
DX: R11.0 Nausea (principal); R10.9 Unspecified abdominal pain; K21.9 Gastro-esophageal reflux disease without esophagitis; E03.9 Hypothyroidism, unspecified; K80.50 Calculus of bile duct without cholangitis or cholecystitis without obstruction; Z87.19 Personal history of other diseases of the digestive system; Z87.39 Personal history of other diseases of the musculoskeletal system and connective tissue; Z86.79 Personal history of other diseases of the circulatory system; Z98.890 Other specified postprocedural states; Z79.82 Long term (current) use of aspirin
CPT/HCPCS: 36415; 74177; 80053; 83605; 83690; 83735; 85025; 85610; 96361; 96374; 96375; 96376; 99285; J1170; J1885; J2405; J2550; J7030; Q9967

== ENCOUNTER 2016-06-02 11:31 | Day surgery (SDC) | payer MEDICARE ==
[~2016-06-02] VITALS: Ht 180.3 cm; Wt 72.9 kg
[2016-06-02] VITALS (10 sets, daily range): BP systolic 106–138; BP diastolic 62–85; PULSE 65–88; RESP 14–17; O2SAT 95–100
[~2016-06-02 11:31] MED LIST changes: +CeFAZolin Inj 2 GM in Dextrose 5% 50 ML IV ONE; +PROM25TA14 PO
[2016-06-02] MEDS ORDERED: fentaNYL-PF 50 mCg/mL 2 mL Inj ONE (11:32)
[2016-06-02] MEDS ORDERED: Rocuronium 10 mg/mL 5 mL Inj ONE (11:32)
[2016-06-02] MEDS ORDERED: Labetalol 5 mg/mL 20 mL Inj ONE (11:32)
[2016-06-02] MEDS ORDERED: EPHEDrine/NS 5 mg/mL 5 mL Syringe ONE (11:32)
[2016-06-02] MEDS ORDERED: HYDROmorphone 2 mg/mL Inj ONE (11:32)
[2016-06-02] MEDS ORDERED: Propofol 10,000 mCg/mL 20 mL Inj ONE (11:32)
[2016-06-02] MEDS ORDERED: MetoCLOpramide 5 mg/mL 2 mL Inj ONE (11:32)
[2016-06-02] MEDS ORDERED: Ondansetron 2 mg/mL 2 mL Inj ONE (11:32)
[2016-06-02] MEDS ORDERED: Succinylcholine Chloride 20 mg/mL 5 mL Inj ONE (11:32)
[2016-06-02] MEDS ORDERED: CeFAZolin Inj 2 gm / 50mL D5W IV ONE (11:46)
[2016-06-02] MEDS ORDERED: Lactated Ringer's 1,000 ML IV ONE ×2 (12:15→13:31)
[2016-06-02] MEDS ORDERED: Lactated Ringer's 1,000 ML IV SCH (13:31)
[2016-06-02] MEDS ORDERED: Lactated Ringer's 500 ML IV PRN (13:31)
--- NOTE | 2016-06-02 13:34 | PCM.HPANE ---
Patient Data Date of Service: Jun 02, 2016 Surgeon Admitting Provider: Attending Provider:John Paul Bermudez MD Primary Care Physician:Andria Garcia MD Other Provider:Ildefonso Grullon Anesthesia Reason for Visit Gallstones Pancreatitis Ht/WT & BMI Height (Feet): 5 Height (Inches): 11 Weight (Kilograms): 72.9 Body Mass Index 22.00 Allergies Coded Allergies: prednisone (Verified Allergy, Unknown, MOOD SWINGS, 06/02/16) pregabalin (Verified Allergy, Unknown, 06/02/16) Past Anesthesia History Anesthesia History: Denies:: Abnormal Airway, Anesthesia Reactions, Difficult Intubation, Fam Anesthesia Reaction, Fam Malignant Hypertherm, Malignant Hyperthermia Diabetes History Hx Diabetes?: No MRSA MRSA: No Medications Blood Thinner: Aspirin Hypertension Medication: No Home Meds Incl Beta Marybel: No Active Scripts Promethazine 25 Mg Eqqige49 Mg PO Q6H PRN For Nausea #20 TABLET Ref 0 Prov:Michelle Guy MD 05/30/16 Reported Medications Abatacept (Orencia)125 Mg/1 Ml Srzstit280 Mg SUBQ WEEKLY 05/24/16 Ascorbic Acid (Vitamin C)1,000 Mg Tab.chew1,000 Mg PO DAILY Ref 0 07/08/15 Multivitamin (Once Daily)1 Each Tablet1 Each PO DAILY 07/08/15 Methotrexate Sodium/Pf (Methotrexate 1 gm Vial)1 Gm Vial1 Gm IJ WEEKLY 07/08/15 Ibuprofen 200 Mg Cqyxtay306 Mg PO q6hrs PRN For Pain Ref 0 07/08/15 Calcium Citrate/Vitamin D2 (Calcium with Vit D Tablet)1 Each Tablet1 Each PO DAILY 07/08/15 Bupropion ER (Wellbutrin SR)150 Mg Tablet.er150 Mg PO BID Ref 0 07/08/15 Flaxseed 340 Gm Powder1 Tsp PO DAILY 11/01/13 Duloxetine (Cymbalta)60 Mg Capsule.dr60 Mg PO PM Ref 0 11/01/13 Folic Acid 1 Mg Tablet1 Mg PO PM 30 Days 11/01/13 Hydroxychloroquine Sulfate 200 Mg Mzyrjo051 Mg PO PM 30 Days Ref 0 11/01/13 Clobetasol Propionate/Emoll (Clobetasol Emollient 0.05% Crm)15 Gm Cream..g.1 Appl TOP BID #1 TUBE 10/05/13 Gable-3 Fatty Acids/Fish Oil (Gable 3 Fish Oil Softgel)1 Each Capsule.dr1 Each PO DAILY 1200mg po caps 09/24/13 Aspirin 81 Mg Tablet.dr81 Mg PO AM #1 BOTTLE Ref 0 09/24/13 Potassium Chloride ER 10 Meq Tablet.er10 Meq PO AM 30 Days Ref 0 TAKE WITH FOOD 09/24/13 Levothyroxine 75 Mcg Mbkznz04 Mcg PO AM 30 Days Ref 0 09/24/13 Furosemide 40 Mg Bqtsut90 Mg PO AM 30 Days 09/24/13 Methadone 5 Mg Xmyxrk16 Mg PO BID For Pain 09/24/13 Meloxicam 7.5 Mg Tablet1 Tab PO AM 30 Days Ref 0 take 1-2 tabs 09/24/13 Pentoxifylline 400 Mg Tablet.er400 Mg PO AM 30 Days 09/24/13 Gabapentin 300 Mg Yfczwao624 Mg PO BID 30 Days Ref 0 09/24/13 Amlodipine (Norvasc)5 Mg Tablet5 Mg PO AM 30 Days Ref 0 09/24/13 Prazosin (Minipress)1 Mg Capsule1 Mg PO BID 09/24/13 Discontinued Reported Medications Potassium Chloride ER (Klor-Con 8)8 Meq Tablet8 Meq PO BID Ref 0 07/08/15 Discontinued Scripts Famotidine (Pepcid)40 Mg Mydgfl25 Mg PO DAILY #30 TABLET Prov:Jeff Mueller S DO 05/11/15 History History of ENT Problems?: No HEENT History: Positive for:: Sinus Problem (hx of sinus surg/ resolved AMBERLY ) Denies:: Abnormal Airway Cataracts Difficult Intubation Dysphagia Hearing Problem Hx of Heart Problems?: Yes Cardiovascular History: Positive for:: Chest Pain (pulmonary ) Peripheral Vascular (raynauds- hands and feet, problematic during surgery for her) Denies:: AICD Atrial Fibrillation Cardiac Surgery Congestive Heart Failure Edema Heart Murmur Hypertension Irregular Heartbeat Pacemaker Thrombophlebitis Valvular Heart Disease Hx of Respiratory Problem?: Yes Respiratory History: Positive for:: Pneumonia (2003) Use of C-PAP Machine (amberly pos) Denies:: Asthma COPD Chest Surgery Cough Dyspnea Emphysema Hemoptysis Oxygen Administration Tuberculosis Hx Neurologic Problems?: No Neurological History: Denies:: Alzheimer's Disease CVA Dementia Dizziness Headaches Multiple Sclerosis Parkinson's Disease Seizures Hx of GI Problems?: Yes Gastrointestinal History: Positive for:: Gall Bladder Disease (current admission problem, gallstone pancreatitis- ERCP recently) Gastroesphageal Reflux Gastrointestinal Bleeding Heartburn Hiatal Hernia Denies:: Cirrhosis Diverticulitis Hepatitis Rectal Bleeding Other GI Pertinent History: pt hx of multiple abdominal surgery- subtotal colectomy, lysis adhesions, lap toupet fundoplication Hx of Problems?: No Genitourinary History: Denies:: HX of Hemodialysis Kidney Stones Urinary Tract Infection HX of Peritoneal Dialysis: No Female Hx: Denies:: Currently Endometriosis Pelvic Inflammatory Problems with Breasts? Skin History: Positive for:: History Skin Disorders? (scleraderma) Denies:: Pressure Ulcers Hx Musculoskeletal Problems?: Yes Musculoskeletal History: Positive for:: Musculoskeletal Trauma (wrist and toe surg) Rheumatoid Arthritis (and scleroderma) Denies:: Back Injury Joint Replacement Hx of Psycho/Social Problems?: Yes Psycho Social History: Positive for:: Hx Depression Denies:: Anxiety Bipolar Disorder Suicide Attempt Hx Surgeries?: Yes (colectomy, lysis adhesions, lap toupet, ) Hx Any Other Health Problems?: Yes Other History: Positive for:: Hospitalization Denies:: Cancer Endocrine Disease Thyroid Disease History Blood Transfusions: Positive for:: Blood Transfuse Reaction Denies:: Blood Transfusions Hx Diabetes: No Hx Alcohol Use: NoHx Substance Use: No Smoking Status: Never Smoker Have You Smoked inLast 12 mo: No Stop/Bang Treated for Sleep Apnea?: No Do You Have a CPAP Machine?: No P-Blood Pressure: treated: No B- Body Mass Index > 35 kg/m2: No A- Age over 50: Yes N- Neck Large Circumference: No G- Gender Male: No AMBERLY Risk Assessment: Low Risk, <3 Yes Risk Assessment Category Category 1A: Patient has history of documented sleep apnea, and HAS NOT received any narcotic, sedative or anesthesia administration during this stay. Category 1B: Patient has history of documented sleep apnea, and HAS received any narcotic , sedative or anesthesia administration during this stay Category 2: Patient has SUSPECTED Obstructive Sleep Apnea, and HAS received any narcotic , sedative or anesthesia administration during this stay. Category 3: Patient has SUSPECTED Obstructive Sleep Apnea and HAS NOT received narcotic, sedative or anesthesia administration during this stay. Category 4: Outpatient in Procedural Areas with known sleep apnea or who screen positive for High Risk via the STOP/BANG questionnaire. Exam Exam Vital Signs Vital Signs Date Time Temp Pulse Resp B/P Pulse Ox O2 Delivery O2 Flow Rate FiO2 3/21/17 12:00 36.5 65 16 121/85 100 Room Air General Appearance: Alert, Oriented X3, Cooperative HEENT/AIRWAY: MP 1, Neck Movement (Full), Mouth Opening (Wide) Lungs: Clear to Auscultation, Normal Air Movement Heart: Regular Rate/Rhythm, Normal S1, Normal S2 Meds/Labs/Diagnostics Admission Meds Current Medications Lactated Ringer's (Lr) 1,000 ml @ ud STK-MED ONCE IV Last administered on 06/02t 12:15; Start 06/02/16 at 12:15; Stop 06/02/16 at 12:22; Status DC Plan Impression Patient chart reviewed, patient interviewed and anesthestic plan with risks, benefits, and alternatives discussed, and informed consent obtained. NPO Status: MIDNIGHT ASA Physical Status: ASA3 Severe Disease Anesthetic Plan: GA Bene/Risks/Altern/Consents: Yes HP Complete Prior to Induction: Yes Alex France MD Jun 02, 2016 13:34
[2016-06-02] MEDS ORDERED: hydrALAZINE 20 mg/mL Inj IVPUSH PRN (13:35)
[2016-06-02] MEDS ORDERED: Phenylephrine 10,000 mCg/mL Inj IVPUSH PRN (13:35)
[2016-06-02] MEDS ORDERED: Promethazine Inj 12.5 MG in Dextrose 5%-Pha MIX 50 ML IV PRN (13:35)
[2016-06-02] MEDS ORDERED: HYDROmorphone 1 mg/mL Inj IVPUSH PRN (13:35)
[2016-06-02] MEDS ORDERED: EPHEDrine Sulfate 50 mg/mL Inj IVPUSH PRN (13:35)
[2016-06-02] MEDS ORDERED: Labetalol 5 mg/mL 4 mL Inj IV PRN (13:35)
[2016-06-02] MEDS ORDERED: Ondansetron 2 mg/mL 2 mL Inj IVPUSH PRN (13:35)
[2016-06-02] MEDS ORDERED: Atropine 0.4 mg/mL Inj IVPUSH PRN (13:35)
[2016-06-02] MEDS ORDERED: Bupivacaine-MPF 0.25%/EPI 30 mL Inj INJ ONE (14:06)
[2016-06-02] MEDS ORDERED: oxyCODONE-Acetamin 5-325 mg Tablet PO PRN (16:20)
--- NOTE | 2016-06-02 16:21 | PCM.ANEP1 ---
Post Anesthesia Phase 1 PACU Phase 1 Assessment Date of Service: Jun 02, 2016 Vital Signs PACU T 38.1, RR 16, BP 135/83, O2 97% RA, RR 15 Vital Signs Date Time Temp Pulse Resp B/P Pulse Ox O2 Delivery O2 Flow Rate FiO2 06/02/16 12:00 36.5 65 16 121/85 100 Room Air Anesthetic Administered: GA Level of Alertness: Awake, talking MACKEY's with Equal Strength: Yes Pain: Yes Pain Scale Score: 5 Nausea or Vomiting: No Oxygen Delivery: Simple Mask Lungs: Normal Air Movement Alex France MD Jun 02, 2016 16:20
--- NOTE | 2016-06-02 16:23 | PCM.ANEP2 ---
Post Anesthesia Evaluation ASA/CMS Post Anesthesia Date of Service: Jun 02, 2016 VS in Patient's Normal Range?: Yes Resp Stable; Airway Patent?: Yes CV Function & Hydration Stable: Yes Mental Status Recovered?: Yes Pain control Satisfactory?: Yes N/V Control Satisfactory?: Yes Alex France MD Jun 02, 2016 16:22
[2016-06-02] MEDS: fentaNYL-PF 50 mCg/mL 2 mL Inj IVPUSH PRN ×2 (16:25→16:30)
--- NOTE | 2016-06-02 18:36 | OP ---
[address] [address] OPERATIVE REPORT PATIENT: FOSTER FELICIANO : 1960 MR#: [id number] ADMIT: 06/02/2016 JOB ID: [id number] DATE OF SURGERY: 06/02/2016 ANESTHESIA: General. PREOPERATIVE DIAGNOSIS(ES): History of recent gallstone pancreatitis, choledocholithiasis, and possible cholecystitis. POSTOPERATIVE DIAGNOSIS(ES): History of recent gallstone pancreatitis, choledocholithiasis, and possible cholecystitis. OPERATIVE PROCEDURE: Laparoscopic cholecystectomy (22 modifier was billed due to increased complexity of case given the patient's past surgical history requiring increased equipment utilization and three times the usual case length). SURGEON: Dr. John Paul Bermudez. CHART COMPUTER: Sara Benavidez PA-C (the licensed loan officer assistant was required for the safe and timely completion of the case). COMPLICATIONS: None. ESTIMATED BLOOD LOSS: 10 mL. CONDITION: Satisfactory. FINDINGS: As anticipated, there were dense adhesions in the abdomen requiring increased operative time. The gallbladder itself, though significantly adhesed to surrounding structures, did not appear to be inflamed. INDICATIONS/SIGNIFICANT HISTORY: The patient is a 55-year-old female with multiple medical comorbidities including scleroderma. She has had multiple prior operations including a subtotal colectomy for colonic inertia, laparoscopic toupee fundoplication, a redo laparoscopic toupee fundoplication, and adhesiolysis x3 for small bowel obstructions. She recently was hospitalized with gallstone pancreatitis. General Surgery was not consulted during that hospitalization. An MRCP suggested choledocholithiasis. The patient was discharged home and then followed up with Gastroenterology for an ERCP. That was performed recently and then plans were made for one my colleagues to perform a cholecystectomy next week. However, the patient had unremitting nausea and discomfort which was attributed to her gallbladder. Therefore, I was asked to perform the cholecystectomy earlier. OPERATIVE TECHNIQUE: The patient was taken to the operating room and placed in supine position. General anesthesia was administered and perioperative antibiotics given. The abdomen was prepped and draped in the standard surgical fashion and a procedure pause was performed. I initially tried to enter the abdomen through a supraumbilical incision using an open Denise technique. I opened the previous incision and was able to enter the abdomen but was in a densely adhesed small intraperitoneal pocket. I therefore elected to make a small right upper quadrant incision using a 5 mm Optiview trocar to enter the abdomen. I entered a relatively free space. I then inserted an additional 5 mm in the right lower quadrant. I then was able to take down adhesions with a combination of sharp dissection and cautery until I freed up around the umbilical site. I then inserted a 10 mm port through that umbilical incision. I then injected local anesthetic, inserted a 5 mm port in the subxiphoid. Additional right upper quadrant port was placed. I then began the dissection of the gallbladder. There were dense adhesions to the duodenum which were carefully taken down, mostly sharply. Gallbladder was then grasped and retracted cephalad. Dissection was begun to identify the cystic duct and cystic artery. Critical view of safety was achieved. There was a small posterior arterial branch which was clipped and taken sharply. Two clips were then placed on the cystic artery, three clips on the duct and both these were taken sharply. The remainder of the dissection of the gallbladder off the cystic plate was then completed and the gallbladder was placed in an EndoCatch bag and removed through the umbilical port site. The surgical bed was inspected. There was a little bit of bleeding from the superior aspect of the gallbladder fossa from the liver surface which was coagulated. The surgical area was copiously irrigated and found to be hemostatic. The ports were removed. The umbilical fascia site was closed using 0 PDS. Then the skin incisions were closed using 4-0 Monocryl. The entire procedure was well tolerated without complication.
--- NOTE | 2016-06-04 11:15 | PATH ---
SURGICAL PATHOLOGY Attending Physician:John Paul Bermudez MD CASE STATUS: Signed Out PATIENT NAME: FOSTER FELICIANO PID: [id number] : 1960 DATE COLLECTED:06/02/2016 00:00 SPECIMEN: Gallbladder CLINICAL HISTORY: GALLSTONE, PANCREATITIS 1). GALLBLADDER FINAL DIAGNOSIS: 1.GALLBLADDER: CHRONIC CHOLECYSTITIS, APPARENTLY ACALCULOUS. NO EVIDENCE OF MALIGNANCY. ICD10 CODE K81.1 GROSS DESCRIPTION: The specimen is received in one formalin filled container labeled with the patient's name, sublabeled "gallbladder" and consists of an intact 7.0 x 3.0 x 1.4 CM gallbladder. The serosa is smooth. The wall is 0.3-0.4 CM in thickness. The mucosa is a yellow-green to green uribe in color. The lumen contains a light green translucent mucoid material. No calculus are noted. 5 employer relations representative sections are submitted in one cassette. 06/03/2016 DAC MICRO DESCRIPTION: See diagnosis. ICD-9 CODES: CPT CODES: 1: 17532 Electronically Signed Out Bert Herrera MD [facility] Pathology [facility] [address], [place] [address] Technical component performed at [facility], [address] [place] [address] [address], [address]
== END 2016-06-02 23:59 | disposition home or self-care (01) ==
LOC: SAS 11:31
PROVIDERS: ATTEND General Practice
DX: K81.1 Chronic cholecystitis (principal); K82.8 Other specified diseases of gallbladder; K21.9 Gastro-esophageal reflux disease without esophagitis; F32.9 Major depressive disorder, single episode, unspecified; Z79.82 Long term (current) use of aspirin; Z79.899 Other long term (current) drug therapy
CPT/HCPCS: 47562; J0690; J1170; J3010; J7120